=== PATIENT | male | born 1985 | race Caucasian/White ===

== ENCOUNTER 2024-06-05 15:37 | Outpatient (AMB) | payer OTHER, SELFPAY ==
--- NOTE | 2024-06-05 15:53 | MHC.PC.OV ---
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 Was at [facility] for two weeks with pyoderma. Found out he had heart issues in the hospital. Glass Sagger Required: No Allergies No Known Allergies [No Known Allergies*] Allergy (Verified 06/05/24 15:59) Tobacco use date assessed: 06/05/24 Dental Screening Dental Screen Date: 06/05/24 Did you have a dental visit in the last 12 months?: No Did you have a dental problem in the last 6 months where you did not have access to dental care?: No Was dental information given to patient?: No (in process of finding dentist) HPI HPI Comments History of Present Illness Details This is a 39-year-old male with a past medical history of SVT, atrial fibrillation with RVR, obesity, anxiety and depression and pyoderma gangrenosum presenting [facility]. Patient brought his patient visit report from a hospitalization this past April at [facility]. He tells me that he was hospitalized for the wound on his right lower extremity, and he says that the infection ?spread to his blood.? The hospital discharge notes were not available to me at this time. The patient says that it was surgically debrided, and at 1 point they were concerned he might require amputation. He is doing much better fortunately. Dr. Trinity Ramesh is the plastic surgeon. He just had an initial visit with [facility]. They increased his dose of prednisone. He is currently on 60 mg daily. He is doing wound care dressings daily. Patient says he had atrial fibrillation with RVR and an acute injury during hospitalization. He is currently on amiodarone 400 mg daily and Entresto 24-26 mg twice daily. His outbound call center representative is Dr. Samuels. He has an appointment on 07/04/2024. Patient also said he had an episode of SVT a couple of years ago. Per patient and ablation is planned once his leg wound resolves. He sees a therapist at the every Sunday for anxiety and depression. He has a psychiatrist. He is on Effexor and lorazepam as needed. ROS: Constitutional: No unexplained weight loss, fever, chills, fatigue or night sweats. Respiratory: No shortness of breath, cough or sputum production. Cardiovascular: No chest pain, chest pressure or chest discomfort. No palpitations or pedal edema. Neurologic: No headache, dizziness, syncope. Skin: See HPI Endocrine: No cold or heat intolerance. No polyuria or polydipsia. Psychiatric: No SI/HI. Physical exam: Constitutional: Alert, in no distress. Neck: Supple, Full range of motion. No lymphadenopathy. No palpable thyroid masses. Respiratory: Clear to auscultation. Cardiovascular: S1 S2 regular. No murmurs. Neurologic: No focal neurological deficits.. Extremities: Warm and well perfused. No cyanosis or edema. 3+ peripheral pulses bilaterally. There is a large, erythematous, shallow ulcer that covers the majority of the right anterior pearson. It appears clean. The surrounding skin is not erythematous. There is no discharge or edema. Psychiatric: Normal mood and affect [facility] Medical History (Updated 06/06/24 @ 10:37 by ASHLI Cid) REAGAN (acute kidney injury) Atrial fibrillation with RVR Obesity (BMI 30.0-34.9) Anxiety and depression Pyoderma gangrenosum SVT (supraventricular tachycardia) Social History Housing: House Patient Tobacco Use Status: Never used Tobacco e-Cigarette/Vaping Use: Never Used Second Hand Smoke Exposure: No service: No Current occupational status: employed and unemployed Cognitive needs: No Hearing needs: No Vision needs: No Questionnaire PHQ-9 Over the last 2 weeks, how often have you been bothered by any of the following problems? 1. Little interest or pleasure in doing things: nearly every day 2. Feeling down, depressed, or hopeless: nearly every day 3. Trouble falling or staying asleep, or sleeping too much: nearly every day 4. Feeling tired or having little energy: nearly every day 5. Poor appetite or overeating: nearly every day 6. Feeling bad about yourself - or that you are a failure or have let yourself or your family down: nearly every day 7. Trouble concentrating on things, such as reading the newspaper or watching television: nearly every day 8. Moving or speaking so slowly that other people could have noticed. Or the opposite - being so fidgety or restless that you have been moving around a lot more than usual: nearly every day 9. Thoughts that you would be better off or of hurting yourself in some way: several days Total score: 25 Depression Screening Interpretation: Positive Depression Screening Done: Yes 53342 - PHQ-9 Billing: Yes Source: Developed by Drs. Kelvin Huggins, Marah Barakat, Servando Ryan and colleagues, with an educational chun from [employer]. Thrive Questionnaire Date Thrive assessed: 06/05/24 I am a: Patient What is your living situation today?: I do not have a steady places to live I am temporarily staying with others Within the past 12 months, did the food you bought not last and you didn't have the money to get more?: Sometimes True Within the past 12 months, did you worry whether your food would run out before you got money to buy more?: Sometimes True Do you have trouble paying for medicines?: No Do you have trouble getting transportation to medical appointments?: Yes Do you have trouble paying your heating and electricity bill?: No Do you have trouble taking care of your child, family member or friend?: No Do you have trouble with day-to-day activities such as bathing, preparing meals, shopping, managing finances, etc.?: No Are you currently unemployed and looking for a job?: Yes Are you interested in more education?: Yes Please select the resources that you would like help with: Housing/Fpc, Transportation, Daily support, Job search/training and Education Currently or been in a relationship where the following occur: No concerns reported THRIVE Score: 4 AUDIT C Alcohol Use Questionnaire (AUDIT-C) 1. How often do you have a drink containing alcohol?: Never 3. How often do you have six or more drinks on one occasion?: Never Total Score: 0 SHAYY-7 AMB Questionnaire SHAYY-7 Date SHAYY - 7 assessed: 06/05/24 Feeling nervous, anxious, or on edge: 3 = Nearly every day Not being able to stop or control worryin = Nearly every day Worrying too much about different things: 3 = Nearly every day Trouble relaxin = Nearly every day Being so restless that it is hard to sit still: 3 = Nearly every day Becoming easily annoyed or irritable: 3 = Nearly every day Feeling afraid as if something awful might happen: 3 = Nearly every day Total SHAYY-7 score (0-4 normal; 5-9 mild; 10-14 moderate; 15-21 severe): 21 Source: Developed by Drs. Kelvin Huggins, Marah Barakat, Servando Ryan and colleagues, with an educational chun from [employer]. SHAYY-7 Assessment Billing SHAYY-7 Assessment Tool: SHAYY-7 Assessment 60126 Physical exam (Primary Care) Vital Signs: Last Vital Signs Temp 98.7 F 06/05/24 16:00 Pulse 93 06/05/24 16:00 Resp 16 06/05/24 16:00 BP 134/62 06/05/24 16:00 Pulse Ox 98 06/05/24 16:00 Oxygen Delivery Method Room Air 06/05/24 16:00 BMI result Body Mass Index 30.9 Tobacco/Smoking Status: Tobacco use Status Tobacco use date assessed 06/05/24 06/05/24 15:57 Patient Tobacco Use Status Never used Tobacco 06/05/24 15:57 e-Cigarette/Vaping Use Never Used 06/05/24 15:57 PHQ-9: PHQ-9 Score PHQ-9: Total score 25 06/05/24 16:22 Depression Screening Interpretation: Positive Thrive Assessment: Date of Thrive Assessment Date Thrive assessed 06/05/24 06/05/24 16:22 Currently or been in a relationship where the following occur: No concerns reported Assessment and Plan Assessment & Plan (1) Pyoderma gangrenosum: Code(s): L88 - Pyoderma gangrenosum (2) Atrial fibrillation with RVR: Code(s): I48.91 - Unspecified atrial fibrillation (3) SVT (supraventricular tachycardia): Code(s): I47.10 - Supraventricular tachycardia, unspecified (4) Anxiety and depression: Code(s): F41.9 - Anxiety disorder, unspecified; F32.A - Depression, unspecified Plan This is a 39-year-old male who was recently hospitalized for pyoderma gangrenosum, AFib with AVR in REAGAN. Visit is a little bit difficult today without a hospital discharge summary or records. Requested from [facility]. He is following with Plastic surgery and [facility]. Continue treatment plan per specialist at this time. Check labs. Continue psychiatric care with [facility] therapist and psychiatrist. He has an upcoming appointment with [facility]. He is going to run out of his medications prior to this. Refills sent for Entresto and amiodarone. Warning signs warranting return to emergency department reviewed with the patient. Follow up in 2 months. Orders: Orders TSH reflex Free T4 06/05/24 I47.10 - Supraventricular tachycardia, unspecified Comprehensive Met. Panel 06/05/24 I47.10 - Supraventricular tachycardia, unspecified Complete Blood Count Auto Diff 06/05/24 I47.10 - Supraventricular tachycardia, unspecified Medications: New sacubitril-valsartan 24-26 mg (Entresto) 1 tab PO BID 60 tabs 1RF amiodarone 400 mg PO DAILY 30 tabs 1RF Coding Level of Care Code New Pt Level 4 (20507) Complex EM visit Add On G2211 Diagnoses Pyoderma gangrenosum L88 Atrial fibrillation with RVR I48.91 SVT (supraventricular tachycardia) I47.10 Anxiety and depression F41.9; F32.A Additional Codes SHAYY-7 Assessment Billing - SHAYY-7 Assessment Tool: SHAYY-7 Assessment [id number] ([id number])
[2024-06-05 16:00] VITALS: BP 134/62; PULSE 93; RESP 16; TEMP 37.1; O2SAT 98; BMI 30.9
== END 2024-06-05 16:37 | disposition home or self-care (01) ==
PROVIDERS: PCP Physician Assistant Medical; Visit Provider Physician Assistant Medical
DX: L88 Pyoderma gangrenosum (principal); I48.91 Unspecified atrial fibrillation; I47.10 Supraventricular tachycardia, unspecified; F41.9 Anxiety disorder, unspecified; F32.A Depression, unspecified

== ENCOUNTER → 2024-06-05 15:37 | Outpatient (BNVA) | payer OTHER, SELFPAY | PROVIDERS: Visit Provider Physician Assistant Medical | DX: L88 Pyoderma gangrenosum (principal); I48.91 Unspecified atrial fibrillation; I47.10 Supraventricular tachycardia, unspecified; F41.9 Anxiety disorder, unspecified; F32.A Depression, unspecified | CPT/HCPCS: 96127; 99202 ==

== ENCOUNTER 2024-07-14 14:52 | Outpatient (AMB) | payer OTHER, SELFPAY ==
--- NOTE | 2024-07-14 15:14 | A.OFFPC_ITS ---
Vital Signs 07/14/24 15:19 Height 6 ft 0.05 in Weight 236 lb 2 oz BMI 32.0 BP 124/84 Blood Pressure Location Rt brachial Position Sitting Pulse 92 Pulse Source Pulse Oximeter Pulse Oximetry (%) 99 Oxygen Delivery Method Room Air Intake Visit Reasons: follow up Intake Note: Follow up Allergies No Known Allergies [No Known Allergies*] Allergy (Verified 07/14/24 15:15) Tobacco use date assessed: 06/05/24 Dental Screening Dental Screen Date: 06/05/24 HPI HPI Comments History of Present Illness Details This is a 39-year-old male with a past medical history of SVT, atrial fibrillation with RVR, obesity, anxiety and depression and pyoderma gangrenosum presenting for follow up. Pyoderma gangrenosum-patient was hospitalized in April at [facility] for infected wound and sepsis. It was surgically debrided. He saw Dr. Trinity Ramesh for Plastic surgery. He is followed by [facility]. Prednisone was discontinued a month ago. He is still keeping his wound clean and changing the dressing daily. It is doing much better. During hospitalization he had atrial fibrillation with RVR. He sees Dr. Samuels Amiodarone and Entresto were discontinued about 3-4 weeks ago. He has an ablation scheduled for atrial fibrillation this Sunday. Denies chest pain, shortness of breath and palpitations. He continues to see his therapist every Sunday for anxiety and depression. He has a psychiatrist. He is on Effexor and hydroxyzine. He does not feel like hydroxyzine is helping with his symptoms. He endorses history of PTSD. He has a lot of psychosocial stressors. He lives with his girlfriend of 9 years. She has 3 children, and the 14-year-old and 8-year-old are very challenging. Patie nt also he has his own biological children. He is currently not working due to his medical issues. They have financial stressors. His girlfriend also has psychiatric problems. Patient says he feels overwhelmed and trapped. He does a lot for the family, and he does not feel like people are grateful for it. He knows it will get better. Patient says that his girlfriend will be okay if he does end up leaving the relationship. He has made sure that she can be independent. Patient says he will not leave until he gets an inheritance from his grandfather who is 100 years old. He would not be able to without this financial assistance. Patient also says a lot of his belongings are down in [place] where they used to live, and he does not want to leave the relationship until he is able to get these things. Patient also mentions that he has had 6 concussions. The last concussion was 12 years ago. He intermittently gets vertigo when he moves his head back. This has been going on for years. His memory is a concern. He forgets conversations with his girlfriend frequently. The patient says he gets headaches all the time between and behind his eyes that are associated with nausea, vomiting and light sensitivity. Smoking marijuana helps. He is requesting referral to Neurology and imaging. No syncope or seizures. ROS: Constitutional: No unexplained weight loss, fever, chills, fatigue or night sweats. Respiratory: No shortness of breath, cough or sputum production. Cardiovascular: No chest pain, chest pressure or chest discomfort. No palpitations or pedal edema. Neurologic: No headache, dizziness, syncope. Skin: See HPI Endocrine: No cold or heat intolerance. No polyuria or polydipsia. Psychiatric: No SI/HI. Physical exam: Constitutional: Alert, in no distress. Neck: Supple, Full range of motion. No lymphadenopathy. No palpable thyroid masses. Respiratory: Clear to auscultation. Cardiovascular: S1 S2 regular. No murmurs. Neurologic: No focal neurological deficits.. Extremities: Warm and well perfused. No cyanosis or edema. 3+ peripheral pulses bilaterally. There has been significant healing of the large right lower extremity ulcer on the anterior pearson. Nearly the entire ulcer is closed now aside from a few 1 cm hemorrhagic areas. Psychiatric: Normal mood and affect [facility] Medical History (Updated 07/14/24 @ 16:33 by ASHLI Cid) PTSD (post-traumatic stress disorder) Daily headache H/O multiple concussions REAGAN (acute kidney injury) Atrial fibrillation with RVR Obesity (BMI 30.0-34.9) Anxiety and depression Pyoderma gangrenosum SVT (supraventricular tachycardia) Social History Housing: House Patient Tobacco Use Status: Never used Tobacco e-Cigarette/Vaping Use: Never Used Second Hand Smoke Exposure: No service: No Current occupational status: employed and unemployed Cognitive needs: No Hearing needs: No Vision needs: No Questionnaire PHQ-9 Over the last 2 weeks, how often have you been bothered by any of the following problems? 1. Little interest or pleasure in doing things: nearly every day 2. Feeling down, depressed, or hopeless: nearly every day 3. Trouble falling or staying asleep, or sleeping too much: nearly every day 4. Feeling tired or having little energy: more than half the days 5. Poor appetite or overeating: more than half the days 6. Feeling bad about yourself - or that you are a failure or have let yourself or your family down: more than half the days 7. Trouble concentrating on things, such as reading the newspaper or watching television: more than half the days 8. Moving or speaking so slowly that other people could have noticed. Or the opposite - being so fidgety or restless that you have been moving around a lot more than usual: more than half the days 9. Thoughts that you would be better off or of hurting yourself in some way: several days Total score: 20 Source: Developed by Drs. Kelvin Huggins, Marah Barakat, Servando Ryan and colleagues, with an educational chun from [employer]. Thrive Questionnaire Date Thrive assessed: 07/11/24 I am a: Patient What is your living situation today?: I choose not to answer this question Within the past 12 months, did the food you bought not last and you didn't have the money to get more?: Sometimes True Within the past 12 months, did you worry whether your food would run out before you got money to buy more?: Sometimes True Do you have trouble paying for medicines?: No Do you have trouble getting transportation to medical appointments?: Yes Do you have trouble paying your heating and electricity bill?: No Do you have trouble taking care of your child, family member or friend?: No Do you have trouble with day-to-day activities such as bathing, preparing meals, shopping, managing finances, etc.?: Yes Are you currently unemployed and looking for a job?: Yes Are you interested in more education?: No Please select the resources that you would like help with: None Currently or been in a relationship where the following occur: No concerns reported THRIVE Score: 3 AUDIT C Alcohol Use Questionnaire (AUDIT-C) 1. How often do you have a drink containing alcohol?: Never Total Score: 0 SHAYY-7 AMB Questionnaire SHAYY-7 Date SHAYY - 7 assessed: 06/05/24 Feeling nervous, anxious, or on edge: 3 = Nearly every day Not being able to stop or control worryin = Nearly every day Worrying too much about different things: 3 = Nearly every day Trouble relaxin = Nearly every day Being so restless that it is hard to sit still: 3 = Nearly every day Becoming easily annoyed or irritable: 3 = Nearly every day Feeling afraid as if something awful might happen: 3 = Nearly every day Total SHAYY-7 score (0-4 normal; 5-9 mild; 10-14 moderate; 15-21 severe): 21 Source: Developed by Drs. Kelvin Huggins, Marah Barakat, Servando Ryan and colleagues, with an educational chun from [employer]. Physical exam (Primary Care) Vital Signs: Last Vital Signs Pulse 92 07/14/24 15:19 BP 124/84 07/14/24 15:19 Pulse Ox 99 07/14/24 15:19 Oxygen Delivery Method Room Air 07/14/24 15:19 BMI result Body Mass Index 32.0 Tobacco/Smoking Status: Tobacco use Status Tobacco use date assessed 06/05/24 07/14/24 15:17 Patient Tobacco Use Status Never used Tobacco 07/14/24 15:17 e-Cigarette/Vaping Use Never Used 07/14/24 15:17 PHQ-9: PHQ-9 Score PHQ-9: Total score 20 07/14/24 15:21 Thrive Assessment: Date of Thrive Assessment Date Thrive assessed 07/11/24 07/14/24 15:17 Currently or been in a relationship where the following occur: No concerns reported Coding Level of Care Code Est Pt Level 4 (25797) Complex EM visit Add On G2211 Diagnoses Pyoderma gangrenosum L88 Atrial fibrillation with RVR I48.91 Anxiety and depression F41.9; F32.A Daily headache R51.9 Assessment & Plan Assessment & Plan (1) Pyoderma gangrenosum: Code(s): L88 - Pyoderma gangrenosum Category: Medical (2) Atrial fibrillation with RVR: Code(s): I48.91 - Unspecified atrial fibrillation Category: Medical (3) Anxiety and depression: Code(s): F41.9 - Anxiety disorder, unspecified; F32.A - Depression, unspecified Category: Medical (4) Daily headache: Code(s): R51.9 - Headache, unspecified Category: Medical Plan The patient will have his lab work done this week. Printed orders given to the patient. MRI of the head and brain with and without contrast ordered for evaluation of daily headaches, memory concerns and remote history of multiple concussions. Referred to neurology. Ablation is scheduled this Sunday with Cardiology. Continue management per therapist and psychiatrist. Schedule physical exam in 3 months. Orders: Orders MR head/brain wo/w con Today R51.9 - Headache, unspecified, Z87.820 - Personal history of traumatic brain injury Referrals Neurology Referral R51.9 - Headache, unspecified
[2024-07-14 15:19] VITALS: BP 124/84; PULSE 92; O2SAT 99; BMI 32.0
== END 2024-07-14 15:52 | disposition home or self-care (01) ==
LOC: HO.HMCFM 14:53
PROVIDERS: PCP Physician Assistant Medical; Visit Provider Physician Assistant Medical
DX: L88 Pyoderma gangrenosum (principal); I48.91 Unspecified atrial fibrillation; F41.9 Anxiety disorder, unspecified; F32.A Depression, unspecified; R51.9 Headache, unspecified

== ENCOUNTER → 2024-07-14 14:52 | Outpatient (BNVA) | payer OTHER, SELFPAY | PROVIDERS: PCP Physician Assistant Medical; Visit Provider Physician Assistant Medical | DX: L88 Pyoderma gangrenosum (principal); I48.91 Unspecified atrial fibrillation; F41.9 Anxiety disorder, unspecified; F32.A Depression, unspecified; R51.9 Headache, unspecified; Z87.820 Personal history of traumatic brain injury | CPT/HCPCS: 96127; 99212 ==

== ENCOUNTER 2024-08-17 13:21 | Outpatient (REF) | payer OTHER, SELFPAY ==
--- NOTE | ~2024-08-17 | MR_ITS ---
EXAMINATION: MR BRAIN WITHOUT AND WITH CONTRAST CLINICAL INFORMATION: Traumatic brain injury. Persistent headache. Vertigo. Blurred vision. COMPARISON: None available. TECHNIQUE: MRI of the brain was obtained using routine sequences without and following the administration of 10 mL of Gadavist intravenous contrast. FINDINGS: No focal restricted diffusion is demonstrated to suggest acute or subacute cerebral ischemia. No evidence of acute or chronic hemorrhagic products on heme-sensitive imaging. Few nonspecific scattered foci of T2 FLAIR hyperintensity within the coronary radiata white matter. No additional parenchymal signal abnormalities. The ventricles are normal in morphology and size. No abnormal mass effect. No midline shift. Normal appearance of the pituitary gland. The suprasellar cistern remains widely patent. Normal positioning of the cerebellar tonsils. Normal arterial and venous vascular flow voids are present. Small developmental venous anomaly in the right parietal lobe. No abnormal contrast enhancement. Normal, homogeneous marrow signal. Mild mucosal thickening of the paranasal sinuses. No signal abnormalities within the mastoids. Maintained normal T2 signal within the labyrinthine structures. MR/MR head/brain wo/w con IMPRESSION: 1. No acute intracranial abnormalities. No abnormal intracranial enhancement. 2. Mild nonspecific white matter changes. 3. No additional MRI abnormalities to explain the patient's symptoms. Electronically signed by: Michael España DO 08/27/2024 09:51 AM GINA SOFIA
[2024-08-17] MEDS: gadobutroL 10 ML VIAL IVPUSH (14:17)
== END 2024-08-17 13:22 | disposition home or self-care (01) ==
LOC: HO.MRI 13:21
PROVIDERS: PCP Physician Assistant Medical; Visit Provider Physician Assistant Medical
DX: R51.9 Headache, unspecified (principal); Z87.820 Personal history of traumatic brain injury
CPT/HCPCS: 70553; A9585

== ENCOUNTER 2025-08-10 15:58 | Outpatient (AMB) | payer OTHER, SELFPAY ==
--- OUTSIDE RECORDS SUMMARY | 2025-08-04 09:38 | XMS_ITS | Encounter Summary ---
Author Organization [facility] Address [address] [place] [address] Care Team Providers Care Community Artist Name Role Phone Hyacinth Thompson Primary Care Provider Unavailabl e Encounter Details Date Type Department Care Team (Latest Contact Info) Description 08/04/2025 9:38 AM EST - 08/04/2025 11:59 PM [facility] Hospital Encounter [facility] Xray [address] [place] [address] Polyarthralgia Discharge Disposition: Home or Self Care () Social History Tobacco Use Types Packs/Day Years Used Date Smoking Tobacco: Never Passive Smoke Exposure: Past Smokeless Tobacco: Never Alcohol Use Standard Drinks/Week Comments Never 0 (1 standard drink = 0.6 oz pur e alcohol) Sex and Gender Information Value Date Recorded Sex Assigned at Male 05/12/2024 4:26 PM EDT Legal Sex Male 10:17 AM EDT Gender Identity Male 05/12/2024 4:26 PM EDT Sexual Orientation Straight 05/12/2024 4: 26 PM EDT documented as of this encounter Medications at Time of Discharge betamethasone dipropionate 0.05 % ointmentIndicatio ns:Pyoderma gangrenosum Mix with mupirocin ointment and apply onto the wound daily. 45 g 2 07/06/2025 mupirocin (BACTROBAN) 2% ointmentIndicatio ns:Pyoderma gangrenosum Mix with betamethasone ointment and apply a thin layer onto your wound daily. 22 g 3 07/06/2025 documented as of this encounter Plan of Treatment Upcoming Encounters Date Type Department Care Team (Late st Contact Info) Description 11/30/2025 8:00 AM EDT Follow-Up [facility] [address] [place] [address] Cloth Winder: Aniyah Hopkins, Tod Heart MD [address] [place] [address] documented as of this encounter Procedures * Due to [facility] law, this organization might not be sharing negative HIV tests. Procedure Name Priority Date/Time Associated Diagnosis Comments XR CERVICAL SPINE 4 OR 5 VIEWS INCLUDING FLEXION/EXTENSION Routine 08/04/2025 10:40 AM EST Polyarthralgia XR HIP BILATERAL 2 VW W PELVIS Routine 08/04/2025 10:40 AM EST Polyarthralgia XR FOOT 3+ VW RIGHT Routine 08/04/2025 1 0:40 AM EST Polyarthralgia XR FOOT 3+ VW LEFT Routine 08/04/2025 10 :40 AM EST Polyarthralgia XR HAND 3+ VW RIGHT Routine 08/04/2025 1 0:40 AM EST Polyarthralgia XR HAND 3+ VW LEFT Routine 08/04/2025 10 :40 AM EST Polyarthralgia XR SACROILIAC JOINTS 3+ VW Routine 08/04/2025 10:40 AM EST Polyarthralgia XR LUMBAR SPINE 2 OR 3 VIEWS Routine 08/04/2025 10:40 AM EST Polyarthralgia XR THORACIC SPINE 2 VIEWS Routine 08/04/2025 10:40 AM EST Polyarthralgia documented in this encounter Results * Due to [facility] law, this organization might not be sharing negative HIV tests. * XR Hip Bilateral 2 vw W Pelvis (08/04/2025 10:40 AM EST) Anatomical Region Laterality Modality Body, Pelvis, Hip Bilateral Computed Radio graphy 08/04/2025 11:3 1 AM EST Impressions 08/04/2025 11:42 AM EST If this radiology report contains a blank impression section, it is an incomplete radiology report. Please contact the interpreting radiologist or applicable radiology division as soon as possible to obtain the completed interpretation. Workstation ID: [id number] Narrative 08/04/2025 11:42 AM EST COMPARISON: There are no prior studies available for comparison at this time. FINDINGS Bilateral hands AP lateral and oblique views. Bilaterally no old or recent fractures dislocations are identified. No evidence of degenerative or inflammatory arthropathy or inflammatory osteoarthritis. Bilateral feet AP lateral and oblique views. No old or recent fractures dislocations or stress-related changes. Mild degenerative changes of the first MTP and minimally at some of the IP joints. No erosions suggestive of inflammatory arthropathy. No acute changes. Pelvis AP view bilateral hips AP and lateral views. Bilaterally the hip joints SI joints and pubic symphysis are normal. No arthropathy. No old or recent fractures dislocations no calcific tendinosis. SI joints AP and bilateral oblique views. Bilaterally the SI joint spaces are within normal limits. No erosions suggestive of sacroiliitis or any other arthritides. Lumbar spine AP and lateral upright. Mild osteopenia paraspinal soft tissues are within normal limits. Status post L5 laminectomy with internally fixated posterior spinal fusion at L5 and S1. At the same level interbody fusion with interbody graft and anterior listhesis. Degenerative changes of the lower facets. No acute fractures dislocations. Mild retrolisthesis with no arthritic changes at L3-4 and L4 and 5. Thoracic spine AP and lateral views. Paraspinal soft tissues normal. Midthoracic focal dextroscoliosis. In the lateral view some of the upper and the lower thoracic vertebral bodies not completely included. Mild loss of focal kyphosis. No acute fractures dislocations or other changes are identified. Cervical spine AP lateral and flexion and extension lateral views and open-mouth view. Loss of lordosis related to muscle spasm. No acute fractures dislocations or compression deformities. Intervertebral disc spaces and MONIKA are normal. No instability on flexion and extension lateral views. MONIKA is maintained at each motion. Facet joints are within normal limits. Resulting Agency Comment [id number] Procedure Note Li Cha MD - 08/04/2025 COMPARISON: There are no prior studies available for comparison at thistime. FINDINGS Bilateral hands AP lateral and oblique views. Bilaterally no old or recent fractures dislocations are identified. Noevidence of degenerative or inflammatory arthropathy or inflammatoryosteoarthritis. Bilateral feet AP lateral and oblique views. No old or recent fracturesdislocations or stress-related changes. Mild degenerative changes of the first MTP and minimally at some of the IPjoints. No erosions suggestive of inflammatory arthropathy. No acutechanges. Pelvis AP view bilateral hips AP and lateral views. Bilaterally the hip joints SI joints and pubic symphysis are normal. Noarthropathy. No old or recent fractures dislocations no calcifictendinosis. SI joints AP and bilateral oblique views. Bilaterally the SI joint spaces are within normal limits. No erosionssuggestive of sacroiliitis or any other arthritides. Lumbar spine AP and lateral upright. Mild osteopenia paraspinal soft tissues are within normal limits. Statuspost L5 laminectomy with internally fixated posterior spinal fusion at L5and S1. At the same level interbody fusion with interbody graft and anteriorlisthesis. Degenerative changes of the lower facets. No acute fracturesdislocations. Mild retrolisthesis with no arthritic changes at L3-4 and L4 and 5. Thoracic spine AP and lateral views. Paraspinal soft tissues normal. Midthoracic focal dextroscoliosis. In thelateral view some of the upper and the lower thoracic vertebral bodies notcompletely included. Mild loss of focal kyphosis. No acute fractures dislocations or otherchanges are identified. Cervical spine AP lateral and flexion and extension lateral views andopen-mouth view. Loss of lordosis related to muscle spasm. No acute fractures dislocationsor compression deformities. Intervertebral disc spaces and MONIKA are normal.No instability on flexion and extension lateral views. MONIKA is maintained at each motion. Facet joints are withinnormal limits. IMPRESSION: If this radiology report contains a blank impression section, it is anincomplete radiology report. Please contact the interpreting radiologistor applicable radiology division as soon as possible to obtain thecompleted interpretation. Workstation ID: [id number] us Tod Hopkins MD IMG XR PROCEDURES Final Res ult * XR Spine Cervical 4 or 5 Views Including Flexion/Extension (08/04/2025 10:40 AM EST) Anatomical Region Laterality Modality Spine, C-spine Computed Radiogr aphy 08/04/2025 11:3 1 AM EST Impressions 08/04/2025 11:42 AM EST If this radiology report contains a blank impression section, it is an incomplete radiology report. Please contact the interpreting radiologist or applicable radiology division as soon as possible to obtain the completed interpretation. Workstation ID: [id number] Narrative 08/04/2025 11:42 AM EST COMPARISON: There are no prior studies available for comparison at this time. FINDINGS Bilateral hands AP lateral and oblique views. Bilaterally no old or recent fractures dislocations are identified. No evidence of degenerative or inflammatory arthropathy or inflammatory osteoarthritis. Bilateral feet AP lateral and oblique views. No old or recent fractures dislocations or stress-related changes. Mild degenerative changes of the first MTP and minimally at some of the IP joints. No erosions suggestive of inflammatory arthropathy. No acute changes. Pelvis AP view bilateral hips AP and lateral views. Bilaterally the hip joints SI joints and pubic symphysis are normal. No arthropathy. No old or recent fractures dislocations no calcific tendinosis. SI joints AP and bilateral oblique views. Bilaterally the SI joint spaces are within normal limits. No erosions suggestive of sacroiliitis or any other arthritides. Lumbar spine AP and lateral upright. Mild osteopenia paraspinal soft tissues are within normal limits. Status post L5 laminectomy with internally fixated posterior spinal fusion at L5 and S1. At the same level interbody fusion with interbody graft and anterior listhesis. Degenerative changes of the lower facets. No acute fractures dislocations. Mild retrolisthesis with no arthritic changes at L3-4 and L4 and 5. Thoracic spine AP and lateral views. Paraspinal soft tissues normal. Midthoracic focal dextroscoliosis. In the lateral view some of the upper and the lower thoracic vertebral bodies not completely included. Mild loss of focal kyphosis. No acute fractures dislocations or other changes are identified. Cervical spine AP lateral and flexion and extension lateral views and open-mouth view. Loss of lordosis related to muscle spasm. No acute fractures dislocations or compression deformities. Intervertebral disc spaces and MONIKA are normal. No instability on flexion and extension lateral views. MONIKA is maintained at each motion. Facet joints are within normal limits. Resulting Agency Comment [id number] Procedure Note Li Cha MD - 08/04/2025 COMPARISON: There are no prior studies available for comparison at thistime. FINDINGS Bilateral hands AP lateral and oblique views. Bilaterally no old or recent fractures dislocations are identified. Noevidence of degenerative or inflammatory arthropathy or inflammatoryosteoarthritis. Bilateral feet AP lateral and oblique views. No old or recent fracturesdislocations or stress-related changes. Mild degenerative changes of the first MTP and minimally at some of the IPjoints. No erosions suggestive of inflammatory arthropathy. No acutechanges. Pelvis AP view bilateral hips AP and lateral views. Bilaterally the hip joints SI joints and pubic symphysis are normal. Noarthropathy. No old or recent fractures dislocations no calcifictendinosis. SI joints AP and bilateral oblique views. Bilaterally the SI joint spaces are within normal limits. No erosionssuggestive of sacroiliitis or any other arthritides. Lumbar spine AP and lateral upright. Mild osteopenia paraspinal soft tissues are within normal limits. Statuspost L5 laminectomy with internally fixated posterior spinal fusion at L5and S1. At the same level interbody fusion with interbody graft and anteriorlisthesis. Degenerative changes of the lower facets. No acute fracturesdislocations. Mild retrolisthesis with no arthritic changes at L3-4 and L4 and 5. Thoracic spine AP and lateral views. Paraspinal soft tissues normal. Midthoracic focal dextroscoliosis. In thelateral view some of the upper and the lower thoracic vertebral bodies notcompletely included. Mild loss of focal kyphosis. No acute fractures dislocations or otherchanges are identified. Cervical spine AP lateral and flexion and extension lateral views andopen-mouth view. Loss of lordosis related to muscle spasm. No acute fractures dislocationsor compression deformities. Intervertebral disc spaces and MONIKA are normal.No instability on flexion and extension lateral views. MONIKA is maintained at each motion. Facet joints are withinnormal limits. IMPRESSION: If this radiology report contains a blank impression section, it is anincomplete radiology report. Please contact the interpreting radiologistor applicable radiology division as soon as possible to obtain thecompleted interpretation. Workstation ID: [id number] us Tod Hopkins MD IMG XR PROCEDURES Final Res ult * XR Sacroiliac Joints 3+ vw (08/04/2025 10:40 AM EST) Anatomical Region Laterality Modality Body, Spine, Pelvis Computed Rad iography 08/04/2025 11:3 1 AM EST Impressions 08/04/2025 11:42 AM EST If this radiology report contains a blank impression section, it is an incomplete radiology report. Please contact the interpreting radiologist or applicable radiology division as soon as possible to obtain the completed interpretation. Workstation ID: [id number] Narrative 08/04/2025 11:42 AM EST COMPARISON: There are no prior studies available for comparison at this time. FINDINGS Bilateral hands AP lateral and oblique views. Bilaterally no old or recent fractures dislocations are identified. No evidence of degenerative or inflammatory arthropathy or inflammatory osteoarthritis. Bilateral feet AP lateral and oblique views. No old or recent fractures dislocations or stress-related changes. Mild degenerative changes of the first MTP and minimally at some of the IP joints. No erosions suggestive of inflammatory arthropathy. No acute changes. Pelvis AP view bilateral hips AP and lateral views. Bilaterally the hip joints SI joints and pubic symphysis are normal. No arthropathy. No old or recent fractures dislocations no calcific tendinosis. SI joints AP and bilateral oblique views. Bilaterally the SI joint spaces are within normal limits. No erosions suggestive of sacroiliitis or any other arthritides. Lumbar spine AP and lateral upright. Mild osteopenia paraspinal soft tissues are within normal limits. Status post L5 laminectomy with internally fixated posterior spinal fusion at L5 and S1. At the same level interbody fusion with interbody graft and anterior listhesis. Degenerative changes of the lower facets. No acute fractures dislocations. Mild retrolisthesis with no arthritic changes at L3-4 and L4 and 5. Thoracic spine AP and lateral views. Paraspinal soft tissues normal. Midthoracic focal dextroscoliosis. In the lateral view some of the upper and the lower thoracic vertebral bodies not completely included. Mild loss of focal kyphosis. No acute fractures dislocations or other changes are identified. Cervical spine AP lateral and flexion and extension lateral views and open-mouth view. Loss of lordosis related to muscle spasm. No acute fractures dislocations or compression deformities. Intervertebral disc spaces and MONIKA are normal. No instability on flexion and extension lateral views. MONIKA is maintained at each motion. Facet joints are within normal limits. Resulting Agency Comment [id number] Procedure Note Li Cha MD - 08/04/2025 COMPARISON: There are no prior studies available for comparison at thistime. FINDINGS Bilateral hands AP lateral and oblique views. Bilaterally no old or recent fractures dislocations are identified. Noevidence of degenerative or inflammatory arthropathy or inflammatoryosteoarthritis. Bilateral feet AP lateral and oblique views. No old or recent fracturesdislocations or stress-related changes. Mild degenerative changes of the first MTP and minimally at some of the IPjoints. No erosions suggestive of inflammatory arthropathy. No acutechanges. Pelvis AP view bilateral hips AP and lateral views. Bilaterally the hip joints SI joints and pubic symphysis are normal. Noarthropathy. No old or recent fractures dislocations no calcifictendinosis. SI joints AP and bilateral oblique views. Bilaterally the SI joint spaces are within normal limits. No erosionssuggestive of sacroiliitis or any other arthritides. Lumbar spine AP and lateral upright. Mild osteopenia paraspinal soft tissues are within normal limits. Statuspost L5 laminectomy with internally fixated posterior spinal fusion at L5and S1. At the same level interbody fusion with interbody graft and anteriorlisthesis. Degenerative changes of the lower facets. No acute fracturesdislocations. Mild retrolisthesis with no arthritic changes at L3-4 and L4 and 5. Thoracic spine AP and lateral views. Paraspinal soft tissues normal. Midthoracic focal dextroscoliosis. In thelateral view some of the upper and the lower thoracic vertebral bodies notcompletely included. Mild loss of focal kyphosis. No acute fractures dislocations or otherchanges are identified. Cervical spine AP lateral and flexion and extension lateral views andopen-mouth view. Loss of lordosis related to muscle spasm. No acute fractures dislocationsor compression deformities. Intervertebral disc spaces and MONIKA are normal.No instability on flexion and extension lateral views. MONIKA is maintained at each motion. Facet joints are withinnormal limits. IMPRESSION: If this radiology report contains a blank impression section, it is anincomplete radiology report. Please contact the interpreting radiologistor applicable radiology division as soon as possible to obtain thecompleted interpretation. Workstation ID: [id number] us Tod Hopkins MD IMG XR PROCEDURES Final Res ult * XR Lumbar Spine 2 or 3 Views (08/04/2025 10:40 AM EST) Anatomical Region Laterality Modality Spine, L-spine Computed Radiogr aphy 08/04/2025 11:3 1 AM EST Impressions 08/04/2025 11:42 AM EST If this radiology report contains a blank impression section, it is an incomplete radiology report. Please contact the interpreting radiologist or applicable radiology division as soon as possible to obtain the completed interpretation. Workstation ID: [id number] Narrative 08/04/2025 11:42 AM EST COMPARISON: There are no prior studies available for comparison at this time. FINDINGS Bilateral hands AP lateral and oblique views. Bilaterally no old or recent fractures dislocations are identified. No evidence of degenerative or inflammatory arthropathy or inflammatory osteoarthritis. Bilateral feet AP lateral and oblique views. No old or recent fractures dislocations or stress-related changes. Mild degenerative changes of the first MTP and minimally at some of the IP joints. No erosions suggestive of inflammatory arthropathy. No acute changes. Pelvis AP view bilateral hips AP and lateral views. Bilaterally the hip joints SI joints and pubic symphysis are normal. No arthropathy. No old or recent fractures dislocations no calcific tendinosis. SI joints AP and bilateral oblique views. Bilaterally the SI joint spaces are within normal limits. No erosions suggestive of sacroiliitis or any other arthritides. Lumbar spine AP and lateral upright. Mild osteopenia paraspinal soft tissues are within normal limits. Status post L5 laminectomy with internally fixated posterior spinal fusion at L5 and S1. At the same level interbody fusion with interbody graft and anterior listhesis. Degenerative changes of the lower facets. No acute fractures dislocations. Mild retrolisthesis with no arthritic changes at L3-4 and L4 and 5. Thoracic spine AP and lateral views. Paraspinal soft tissues normal. Midthoracic focal dextroscoliosis. In the lateral view some of the upper and the lower thoracic vertebral bodies not completely included. Mild loss of focal kyphosis. No acute fractures dislocations or other changes are identified. Cervical spine AP lateral and flexion and extension lateral views and open-mouth view. Loss of lordosis related to muscle spasm. No acute fractures dislocations or compression deformities. Intervertebral disc spaces and MONIKA are normal. No instability on flexion and extension lateral views. MONIKA is maintained at each motion. Facet joints are within normal limits. Resulting Agency Comment [id number] Procedure Note Li Cha MD - 08/04/2025 COMPARISON: There are no prior studies available for comparison at thistime. FINDINGS Bilateral hands AP lateral and oblique views. Bilaterally no old or recent fractures dislocations are identified. Noevidence of degenerative or inflammatory arthropathy or inflammatoryosteoarthritis. Bilateral feet AP lateral and oblique views. No old or recent fracturesdislocations or stress-related changes. Mild degenerative changes of the first MTP and minimally at some of the IPjoints. No erosions suggestive of inflammatory arthropathy. No acutechanges. Pelvis AP view bilateral hips AP and lateral views. Bilaterally the hip joints SI joints and pubic symphysis are normal. Noarthropathy. No old or recent fractures dislocations no calcifictendinosis. SI joints AP and bilateral oblique views. Bilaterally the SI joint spaces are within normal limits. No erosionssuggestive of sacroiliitis or any other arthritides. Lumbar spine AP and lateral upright. Mild osteopenia paraspinal soft tissues are within normal limits. Statuspost L5 laminectomy with internally fixated posterior spinal fusion at L5and S1. At the same level interbody fusion with interbody graft and anteriorlisthesis. Degenerative changes of the lower facets. No acute fracturesdislocations. Mild retrolisthesis with no arthritic changes at L3-4 and L4 and 5. Thoracic spine AP and lateral views. Paraspinal soft tissues normal. Midthoracic focal dextroscoliosis. In thelateral view some of the upper and the lower thoracic vertebral bodies notcompletely included. Mild loss of focal kyphosis. No acute fractures dislocations or otherchanges are identified. Cervical spine AP lateral and flexion and extension lateral views andopen-mouth view. Loss of lordosis related to muscle spasm. No acute fractures dislocationsor compression deformities. Intervertebral disc spaces and MONIKA are normal.No instability on flexion and extension lateral views. MONIKA is maintained at each motion. Facet joints are withinnormal limits. IMPRESSION: If this radiology report contains a blank impression section, it is anincomplete radiology report. Please contact the interpreting radiologistor applicable radiology division as soon as possible to obtain thecompleted interpretation. Workstation ID: [id number] us Tod Hopkins MD IMG XR PROCEDURES Final Res ult * XR Thoracic Spine 2 Views (08/04/2025 10:40 AM EST) Anatomical Region Laterality Modality Spine, T-spine Computed Radiogr aphy 08/04/2025 11:3 1 AM EST Impressions 08/04/2025 11:42 AM EST If this radiology report contains a blank impression section, it is an incomplete radiology report. Please contact the interpreting radiologist or applicable radiology division as soon as possible to obtain the completed interpretation. Workstation ID: [id number] Narrative 08/04/2025 11:42 AM EST COMPARISON: There are no prior studies available for comparison at this time. FINDINGS Bilateral hands AP lateral and oblique views. Bilaterally no old or recent fractures dislocations are identified. No evidence of degenerative or inflammatory arthropathy or inflammatory osteoarthritis. Bilateral feet AP lateral and oblique views. No old or recent fractures dislocations or stress-related changes. Mild degenerative changes of the first MTP and minimally at some of the IP joints. No erosions suggestive of inflammatory arthropathy. No acute changes. Pelvis AP view bilateral hips AP and lateral views. Bilaterally the hip joints SI joints and pubic symphysis are normal. No arthropathy. No old or recent fractures dislocations no calcific tendinosis. SI joints AP and bilateral oblique views. Bilaterally the SI joint spaces are within normal limits. No erosions suggestive of sacroiliitis or any other arthritides. Lumbar spine AP and lateral upright. Mild osteopenia paraspinal soft tissues are within normal limits. Status post L5 laminectomy with internally fixated posterior spinal fusion at L5 and S1. At the same level interbody fusion with interbody graft and anterior listhesis. Degenerative changes of the lower facets. No acute fractures dislocations. Mild retrolisthesis with no arthritic changes at L3-4 and L4 and 5. Thoracic spine AP and lateral views. Paraspinal soft tissues normal. Midthoracic focal dextroscoliosis. In the lateral view some of the upper and the lower thoracic vertebral bodies not completely included. Mild loss of focal kyphosis. No acute fractures dislocations or other changes are identified. Cervical spine AP lateral and flexion and extension lateral views and open-mouth view. Loss of lordosis related to muscle spasm. No acute fractures dislocations or compression deformities. Intervertebral disc spaces and MONIKA are normal. No instability on flexion and extension lateral views. MONIKA is maintained at each motion. Facet joints are within normal limits. Resulting Agency Comment [id number] Procedure Note Li Cha MD - 08/04/2025 COMPARISON: There are no prior studies available for comparison at thistime. FINDINGS Bilateral hands AP lateral and oblique views. Bilaterally no old or recent fractures dislocations are identified. Noevidence of degenerative or inflammatory arthropathy or inflammatoryosteoarthritis. Bilateral feet AP lateral and oblique views. No old or recent fracturesdislocations or stress-related changes. Mild degenerative changes of the first MTP and minimally at some of the IPjoints. No erosions suggestive of inflammatory arthropathy. No acutechanges. Pelvis AP view bilateral hips AP and lateral views. Bilaterally the hip joints SI joints and pubic symphysis are normal. Noarthropathy. No old or recent fractures dislocations no calcifictendinosis. SI joints AP and bilateral oblique views. Bilaterally the SI joint spaces are within normal limits. No erosionssuggestive of sacroiliitis or any other arthritides. Lumbar spine AP and lateral upright. Mild osteopenia paraspinal soft tissues are within normal limits. Statuspost L5 laminectomy with internally fixated posterior spinal fusion at L5and S1. At the same level interbody fusion with interbody graft and anteriorlisthesis. Degenerative changes of the lower facets. No acute fracturesdislocations. Mild retrolisthesis with no arthritic changes at L3-4 and L4 and 5. Thoracic spine AP and lateral views. Paraspinal soft tissues normal. Midthoracic focal dextroscoliosis. In thelateral view some of the upper and the lower thoracic vertebral bodies notcompletely included. Mild loss of focal kyphosis. No acute fractures dislocations or otherchanges are identified. Cervical spine AP lateral and flexion and extension lateral views andopen-mouth view. Loss of lordosis related to muscle spasm. No acute fractures dislocationsor compression deformities. Intervertebral disc spaces and MONIKA are normal.No instability on flexion and extension lateral views. MONIKA is maintained at each motion. Facet joints are withinnormal limits. IMPRESSION: If this radiology report contains a blank impression section, it is anincomplete radiology report. Please contact the interpreting radiologistor applicable radiology division as soon as possible to obtain thecompleted interpretation. Workstation ID: [id number] us Tod Hopkins MD IMG XR PROCEDURES Final Res ult * XR Foot 3+ vw Right (08/04/2025 10:40 AM EST) Anatomical Region Laterality Modality Lower Extremities, Foot Right Computed Radiography 08/04/2025 11:3 1 AM EST Impressions 08/04/2025 11:42 AM EST If this radiology report contains a blank impression section, it is an incomplete radiology report. Please contact the interpreting radiologist or applicable radiology division as soon as possible to obtain the completed interpretation. Workstation ID: [id number] Narrative 08/04/2025 11:42 AM EST COMPARISON: There are no prior studies available for comparison at this time. FINDINGS Bilateral hands AP lateral and oblique views. Bilaterally no old or recent fractures dislocations are identified. No evidence of degenerative or inflammatory arthropathy or inflammatory osteoarthritis. Bilateral feet AP lateral and oblique views. No old or recent fractures dislocations or stress-related changes. Mild degenerative changes of the first MTP and minimally at some of the IP joints. No erosions suggestive of inflammatory arthropathy. No acute changes. Pelvis AP view bilateral hips AP and lateral views. Bilaterally the hip joints SI joints and pubic symphysis are normal. No arthropathy. No old or recent fractures dislocations no calcific tendinosis. SI joints AP and bilateral oblique views. Bilaterally the SI joint spaces are within normal limits. No erosions suggestive of sacroiliitis or any other arthritides. Lumbar spine AP and lateral upright. Mild osteopenia paraspinal soft tissues are within normal limits. Status post L5 laminectomy with internally fixated posterior spinal fusion at L5 and S1. At the same level interbody fusion with interbody graft and anterior listhesis. Degenerative changes of the lower facets. No acute fractures dislocations. Mild retrolisthesis with no arthritic changes at L3-4 and L4 and 5. Thoracic spine AP and lateral views. Paraspinal soft tissues normal. Midthoracic focal dextroscoliosis. In the lateral view some of the upper and the lower thoracic vertebral bodies not completely included. Mild loss of focal kyphosis. No acute fractures dislocations or other changes are identified. Cervical spine AP lateral and flexion and extension lateral views and open-mouth view. Loss of lordosis related to muscle spasm. No acute fractures dislocations or compression deformities. Intervertebral disc spaces and MONIKA are normal. No instability on flexion and extension lateral views. MONIKA is maintained at each motion. Facet joints are within normal limits. Resulting Agency Comment [id number] Procedure Note Li Cha MD - 08/04/2025 COMPARISON: There are no prior studies available for comparison at thistime. FINDINGS Bilateral hands AP lateral and oblique views. Bilaterally no old or recent fractures dislocations are identified. Noevidence of degenerative or inflammatory arthropathy or inflammatoryosteoarthritis. Bilateral feet AP lateral and oblique views. No old or recent fracturesdislocations or stress-related changes. Mild degenerative changes of the first MTP and minimally at some of the IPjoints. No erosions suggestive of inflammatory arthropathy. No acutechanges. Pelvis AP view bilateral hips AP and lateral views. Bilaterally the hip joints SI joints and pubic symphysis are normal. Noarthropathy. No old or recent fractures dislocations no calcifictendinosis. SI joints AP and bilateral oblique views. Bilaterally the SI joint spaces are within normal limits. No erosionssuggestive of sacroiliitis or any other arthritides. Lumbar spine AP and lateral upright. Mild osteopenia paraspinal soft tissues are within normal limits. Statuspost L5 laminectomy with internally fixated posterior spinal fusion at L5and S1. At the same level interbody fusion with interbody graft and anteriorlisthesis. Degenerative changes of the lower facets. No acute fracturesdislocations. Mild retrolisthesis with no arthritic changes at L3-4 and L4 and 5. Thoracic spine AP and lateral views. Paraspinal soft tissues normal. Midthoracic focal dextroscoliosis. In thelateral view some of the upper and the lower thoracic vertebral bodies notcompletely included. Mild loss of focal kyphosis. No acute fractures dislocations or otherchanges are identified. Cervical spine AP lateral and flexion and extension lateral views andopen-mouth view. Loss of lordosis related to muscle spasm. No acute fractures dislocationsor compression deformities. Intervertebral disc spaces and MONIKA are normal.No instability on flexion and extension lateral views. MONIKA is maintained at each motion. Facet joints are withinnormal limits. IMPRESSION: If this radiology report contains a blank impression section, it is anincomplete radiology report. Please contact the interpreting radiologistor applicable radiology division as soon as possible to obtain thecompleted interpretation. Workstation ID: [id number] us Tod Hopkins MD IMG XR PROCEDURES Final Res ult * XR Foot 3+ vw Left (08/04/2025 10:40 AM EST) Anatomical Region Laterality Modality Lower Extremities, Foot Left Computed Radiography 08/04/2025 11:3 1 AM EST Impressions 08/04/2025 11:42 AM EST If this radiology report contains a blank impression section, it is an incomplete radiology report. Please contact the interpreting radiologist or applicable radiology division as soon as possible to obtain the completed interpretation. Workstation ID: [id number] Narrative 08/04/2025 11:42 AM EST COMPARISON: There are no prior studies available for comparison at this time. FINDINGS Bilateral hands AP lateral and oblique views. Bilaterally no old or recent fractures dislocations are identified. No evidence of degenerative or inflammatory arthropathy or inflammatory osteoarthritis. Bilateral feet AP lateral and oblique views. No old or recent fractures dislocations or stress-related changes. Mild degenerative changes of the first MTP and minimally at some of the IP joints. No erosions suggestive of inflammatory arthropathy. No acute changes. Pelvis AP view bilateral hips AP and lateral views. Bilaterally the hip joints SI joints and pubic symphysis are normal. No arthropathy. No old or recent fractures dislocations no calcific tendinosis. SI joints AP and bilateral oblique views. Bilaterally the SI joint spaces are within normal limits. No erosions suggestive of sacroiliitis or any other arthritides. Lumbar spine AP and lateral upright. Mild osteopenia paraspinal soft tissues are within normal limits. Status post L5 laminectomy with internally fixated posterior spinal fusion at L5 and S1. At the same level interbody fusion with interbody graft and anterior listhesis. Degenerative changes of the lower facets. No acute fractures dislocations. Mild retrolisthesis with no arthritic changes at L3-4 and L4 and 5. Thoracic spine AP and lateral views. Paraspinal soft tissues normal. Midthoracic focal dextroscoliosis. In the lateral view some of the upper and the lower thoracic vertebral bodies not completely included. Mild loss of focal kyphosis. No acute fractures dislocations or other changes are identified. Cervical spine AP lateral and flexion and extension lateral views and open-mouth view. Loss of lordosis related to muscle spasm. No acute fractures dislocations or compression deformities. Intervertebral disc spaces and MONIKA are normal. No instability on flexion and extension lateral views. MONIKA is maintained at each motion. Facet joints are within normal limits. Resulting Agency Comment [id number] Procedure Note Li Cha MD - 08/04/2025 COMPARISON: There are no prior studies available for comparison at thistime. FINDINGS Bilateral hands AP lateral and oblique views. Bilaterally no old or recent fractures dislocations are identified. Noevidence of degenerative or inflammatory arthropathy or inflammatoryosteoarthritis. Bilateral feet AP lateral and oblique views. No old or recent fracturesdislocations or stress-related changes. Mild degenerative changes of the first MTP and minimally at some of the IPjoints. No erosions suggestive of inflammatory arthropathy. No acutechanges. Pelvis AP view bilateral hips AP and lateral views. Bilaterally the hip joints SI joints and pubic symphysis are normal. Noarthropathy. No old or recent fractures dislocations no calcifictendinosis. SI joints AP and bilateral oblique views. Bilaterally the SI joint spaces are within normal limits. No erosionssuggestive of sacroiliitis or any other arthritides. Lumbar spine AP and lateral upright. Mild osteopenia paraspinal soft tissues are within normal limits. Statuspost L5 laminectomy with internally fixated posterior spinal fusion at L5and S1. At the same level interbody fusion with interbody graft and anteriorlisthesis. Degenerative changes of the lower facets. No acute fracturesdislocations. Mild retrolisthesis with no arthritic changes at L3-4 and L4 and 5. Thoracic spine AP and lateral views. Paraspinal soft tissues normal. Midthoracic focal dextroscoliosis. In thelateral view some of the upper and the lower thoracic vertebral bodies notcompletely included. Mild loss of focal kyphosis. No acute fractures dislocations or otherchanges are identified. Cervical spine AP lateral and flexion and extension lateral views andopen-mouth view. Loss of lordosis related to muscle spasm. No acute fractures dislocationsor compression deformities. Intervertebral disc spaces and MONIKA are normal.No instability on flexion and extension lateral views. MONIKA is maintained at each motion. Facet joints are withinnormal limits. IMPRESSION: If this radiology report contains a blank impression section, it is anincomplete radiology report. Please contact the interpreting radiologistor applicable radiology division as soon as possible to obtain thecompleted interpretation. Workstation ID: [id number] us Tod Hopkins MD IMG XR PROCEDURES Final Res ult * XR Hand 3+ vw Right (08/04/2025 10:40 AM EST) Anatomical Region Laterality Modality Upper Extremities, Hand Right Computed Radiography 08/04/2025 11:3 1 AM EST Impressions 08/04/2025 11:42 AM EST If this radiology report contains a blank impression section, it is an incomplete radiology report. Please contact the interpreting radiologist or applicable radiology division as soon as possible to obtain the completed interpretation. Workstation ID: [id number] Narrative 08/04/2025 11:42 AM EST COMPARISON: There are no prior studies available for comparison at this time. FINDINGS Bilateral hands AP lateral and oblique views. Bilaterally no old or recent fractures dislocations are identified. No evidence of degenerative or inflammatory arthropathy or inflammatory osteoarthritis. Bilateral feet AP lateral and oblique views. No old or recent fractures dislocations or stress-related changes. Mild degenerative changes of the first MTP and minimally at some of the IP joints. No erosions suggestive of inflammatory arthropathy. No acute changes. Pelvis AP view bilateral hips AP and lateral views. Bilaterally the hip joints SI joints and pubic symphysis are normal. No arthropathy. No old or recent fractures dislocations no calcific tendinosis. SI joints AP and bilateral oblique views. Bilaterally the SI joint spaces are within normal limits. No erosions suggestive of sacroiliitis or any other arthritides. Lumbar spine AP and lateral upright. Mild osteopenia paraspinal soft tissues are within normal limits. Status post L5 laminectomy with internally fixated posterior spinal fusion at L5 and S1. At the same level interbody fusion with interbody graft and anterior listhesis. Degenerative changes of the lower facets. No acute fractures dislocations. Mild retrolisthesis with no arthritic changes at L3-4 and L4 and 5. Thoracic spine AP and lateral views. Paraspinal soft tissues normal. Midthoracic focal dextroscoliosis. In the lateral view some of the upper and the lower thoracic vertebral bodies not completely included. Mild loss of focal kyphosis. No acute fractures dislocations or other changes are identified. Cervical spine AP lateral and flexion and extension lateral views and open-mouth view. Loss of lordosis related to muscle spasm. No acute fractures dislocations or compression deformities. Intervertebral disc spaces and MONIKA are normal. No instability on flexion and extension lateral views. MONIKA is maintained at each motion. Facet joints are within normal limits. Resulting Agency Comment [id number] Procedure Note Li Cha MD - 08/04/2025 COMPARISON: There are no prior studies available for comparison at thistime. FINDINGS Bilateral hands AP lateral and oblique views. Bilaterally no old or recent fractures dislocations are identified. Noevidence of degenerative or inflammatory arthropathy or inflammatoryosteoarthritis. Bilateral feet AP lateral and oblique views. No old or recent fracturesdislocations or stress-related changes. Mild degenerative changes of the first MTP and minimally at some of the IPjoints. No erosions suggestive of inflammatory arthropathy. No acutechanges. Pelvis AP view bilateral hips AP and lateral views. Bilaterally the hip joints SI joints and pubic symphysis are normal. Noarthropathy. No old or recent fractures dislocations no calcifictendinosis. SI joints AP and bilateral oblique views. Bilaterally the SI joint spaces are within normal limits. No erosionssuggestive of sacroiliitis or any other arthritides. Lumbar spine AP and lateral upright. Mild osteopenia paraspinal soft tissues are within normal limits. Statuspost L5 laminectomy with internally fixated posterior spinal fusion at L5and S1. At the same level interbody fusion with interbody graft and anteriorlisthesis. Degenerative changes of the lower facets. No acute fracturesdislocations. Mild retrolisthesis with no arthritic changes at L3-4 and L4 and 5. Thoracic spine AP and lateral views. Paraspinal soft tissues normal. Midthoracic focal dextroscoliosis. In thelateral view some of the upper and the lower thoracic vertebral bodies notcompletely included. Mild loss of focal kyphosis. No acute fractures dislocations or otherchanges are identified. Cervical spine AP lateral and flexion and extension lateral views andopen-mouth view. Loss of lordosis related to muscle spasm. No acute fractures dislocationsor compression deformities. Intervertebral disc spaces and MONIKA are normal.No instability on flexion and extension lateral views. MONIKA is maintained at each motion. Facet joints are withinnormal limits. IMPRESSION: If this radiology report contains a blank impression section, it is anincomplete radiology report. Please contact the interpreting radiologistor applicable radiology division as soon as possible to obtain thecompleted interpretation. Workstation ID: [id number] us Tod Hopkins MD IMG XR PROCEDURES Final Res ult * XR Hand 3+ vw Left (08/04/2025 10:40 AM EST) Anatomical Region Laterality Modality Upper Extremities, Hand Left Computed Radiography 08/04/2025 11:3 1 AM EST Impressions 08/04/2025 11:42 AM EST If this radiology report contains a blank impression section, it is an incomplete radiology report. Please contact the interpreting radiologist or applicable radiology division as soon as possible to obtain the completed interpretation. Workstation ID: [id number] Narrative 08/04/2025 11:42 AM EST COMPARISON: There are no prior studies available for comparison at this time. FINDINGS Bilateral hands AP lateral and oblique views. Bilaterally no old or recent fractures dislocations are identified. No evidence of degenerative or inflammatory arthropathy or inflammatory osteoarthritis. Bilateral feet AP lateral and oblique views. No old or recent fractures dislocations or stress-related changes. Mild degenerative changes of the first MTP and minimally at some of the IP joints. No erosions suggestive of inflammatory arthropathy. No acute changes. Pelvis AP view bilateral hips AP and lateral views. Bilaterally the hip joints SI joints and pubic symphysis are normal. No arthropathy. No old or recent fractures dislocations no calcific tendinosis. SI joints AP and bilateral oblique views. Bilaterally the SI joint spaces are within normal limits. No erosions suggestive of sacroiliitis or any other arthritides. Lumbar spine AP and lateral upright. Mild osteopenia paraspinal soft tissues are within normal limits. Status post L5 laminectomy with internally fixated posterior spinal fusion at L5 and S1. At the same level interbody fusion with interbody graft and anterior listhesis. Degenerative changes of the lower facets. No acute fractures dislocations. Mild retrolisthesis with no arthritic changes at L3-4 and L4 and 5. Thoracic spine AP and lateral views. Paraspinal soft tissues normal. Midthoracic focal dextroscoliosis. In the lateral view some of the upper and the lower thoracic vertebral bodies not completely included. Mild loss of focal kyphosis. No acute fractures dislocations or other changes are identified. Cervical spine AP lateral and flexion and extension lateral views and open-mouth view. Loss of lordosis related to muscle spasm. No acute fractures dislocations or compression deformities. Intervertebral disc spaces and MONIKA are normal. No instability on flexion and extension lateral views. MONIKA is maintained at each motion. Facet joints are within normal limits. Resulting Agency Comment [id number] Procedure Note Li Cha MD - 08/04/2025 COMPARISON: There are no prior studies available for comparison at thistime. FINDINGS Bilateral hands AP lateral and oblique views. Bilaterally no old or recent fractures dislocations are identified. Noevidence of degenerative or inflammatory arthropathy or inflammatoryosteoarthritis. Bilateral feet AP lateral and oblique views. No old or recent fracturesdislocations or stress-related changes. Mild degenerative changes of the first MTP and minimally at some of the IPjoints. No erosions suggestive of inflammatory arthropathy. No acutechanges. Pelvis AP view bilateral hips AP and lateral views. Bilaterally the hip joints SI joints and pubic symphysis are normal. Noarthropathy. No old or recent fractures dislocations no calcifictendinosis. SI joints AP and bilateral oblique views. Bilaterally the SI joint spaces are within normal limits. No erosionssuggestive of sacroiliitis or any other arthritides. Lumbar spine AP and lateral upright. Mild osteopenia paraspinal soft tissues are within normal limits. Statuspost L5 laminectomy with internally fixated posterior spinal fusion at L5and S1. At the same level interbody fusion with interbody graft and anteriorlisthesis. Degenerative changes of the lower facets. No acute fracturesdislocations. Mild retrolisthesis with no arthritic changes at L3-4 and L4 and 5. Thoracic spine AP and lateral views. Paraspinal soft tissues normal. Midthoracic focal dextroscoliosis. In thelateral view some of the upper and the lower thoracic vertebral bodies notcompletely included. Mild loss of focal kyphosis. No acute fractures dislocations or otherchanges are identified. Cervical spine AP lateral and flexion and extension lateral views andopen-mouth view. Loss of lordosis related to muscle spasm. No acute fractures dislocationsor compression deformities. Intervertebral disc spaces and MONIKA are normal.No instability on flexion and extension lateral views. MONIKA is maintained at each motion. Facet joints are withinnormal limits. IMPRESSION: If this radiology report contains a blank impression section, it is anincomplete radiology report. Please contact the interpreting radiologistor applicable radiology division as soon as possible to obtain thecompleted interpretation. Workstation ID: [id number] us Tod Hopkins MD IMG XR PROCEDURES Final Res ult documented in this encounter Visit Diagnoses Diagnosis Polyarthralgia Pain in joint, multiple sites documented in this encounter Care Teams Community Artist Relationship Specialty Start Date End Date Hyacinth Thompson PCP - General Internal Medicine 08/04/25 documented as of this encounter
--- NOTE | 2025-08-10 16:08 | MHC.PC.OV ---
Vital Signs 08/10/25 16:14 Height 6 ft 2 in Weight 216 lb 3 oz BMI 27.8 BP 118/72 Blood Pressure Location Rt brachial Position Sitting Respiration 15 Pulse 81 Pulse Source Pulse Oximeter Temp 98.2 F Temp Source Temporal Artery Scan Pulse Oximetry (%) 98 Oxygen Delivery Method Room Air Intake Visit Reasons: physical exam Intake Note: Cesar presents in the office today for his annual physical. Director Patient Accounting Required: No Allergies No Known Allergies (No Known Allergies*) Allergy (Verified 08/10/25 16:10) Tobacco use date assessed: 08/10/25 Dental Screening Dental Screen Date: 08/10/25 Did you have a dental visit in the last 12 months?: No Did you have a dental problem in the last 6 months where you did not have access to dental care?: No Was dental information given to patient?: Patient declined HPI HPI Comments History of Present Illness Details This is a 40-year-old male with a past medical history of SVT, atrial fibrillation with RVR, obesity, anxiety and depression and pyoderma gangrenosum presenting for a physical. He was last seen 07/14/2024. Pyoderma gangrenosum-patient was hospitalized in April 2024 at [facility] for infected wound and sepsis. It was surgically debrided. He saw Dr. Trinity Ramesh for Plastic surgery. He is followed by [facility]. He was on prednisone. He is doing great. He still sees [facility]. They did bring up a concern about potential autoimmune disease so he also saw Rheumatology there recently and had x-rays of his spine that he will upload and an extensive amount of lab work. During hospitalization in 2023 he had atrial fibrillation with RVR. He had an ablation with Dr. Beckman. Denies chest pain, shortness of breath and palpitations. The patient has anxiety, depression and PTSD. He is followed by a therapist and psychiatrist. He tried multiple medications including Effexor and hydroxyzine. His psychiatrist asked him to discuss starting a lorazepam as needed with me because the psychiatrist does not prescribe benzodiazepines. He does not have a history of drug abuse. He does use marijuana for anxiety. He actually stopped using it entirely recently. He has a lot of psychosocial stressors. Lives with his girlfriend. She has 3 children, and this can be challenging. Patient also has a zone biological children. They have financial stressors. A year ago at his appointment he brought up concerns about intermittent vertigo, memory concerns and headaches. He reported a history of 6 concussions. The last concussion was now 13 years ago. Headaches were associated with nausea, vomiting and light sensitivity. Smoking marijuana helped. He was referred to Neurology, but an appointment was not scheduled. He had an MRI of the brain which showed only mild, nonspecific white matter changes. He is very concerned about potentially having multiple sclerosis. He says over the past 6 months he has had numbness on the bottom of his right foot that is worse when he is sitting. He also is dropping things with his right hand frequently, and he gets numbness and tingling in the right hand. He has some stiffness in his neck, but the x-ray recently done by Rheumatology did not show any significant changes but there was possible muscle spasm. He denies vision changes. Headaches have been occurring less frequently. He is right-hand dominant. He defers all vaccines. ROS: Constitutional: No unexplained weight loss, fever, chills or night sweats. +fatigue Eyes: No vision changes, blurry vision, double vision, eye pain, eye redness, eye discharge. ENT: No hearing loss, sneezing, congestion, runny nose or sore throat. Respiratory: No shortness of breath, cough or sputum production. Cardiovascular: No chest pain, chest pressure or chest discomfort. No palpitations or pedal edema. Gastrointestinal: No anorexia, nausea, vomiting or diarrhea. No abdominal pain or blood in stool. Genitourinary: No dysuria, hematuria, urinary frequency. Neurologic: No syncope, ataxia, tremors. See HPI Musculoskeletal: No joint swelling. See HPI. Hematologic/Lymphatics: No bleeding or bruising. No painful lymph nodes. Skin: No rash Endocrine: No cold or heat intolerance. No polyuria or polydipsia. Psychiatric: See HPI. No SI/HI. Physical exam: Constitutional: Alert, in no distress. Head: Normocephalic. Eyes: Pupils are equal, round and reactive to light. Extraocular muscles intact. Ear, Nose and Throat: Canals clear. TMs normal. Normal nasal mucosa. No nasal discharge. No oral lesions. Neck: Supple, Full range of motion. No lymphadenopathy. No palpable thyroid masses. Respiratory: Clear to auscultation. Cardiovascular: S1 S2 regular. No murmurs. No carotid bruits. Gastrointestinal: Abdomen soft, non-tender, non-distended. Normal bowel sounds. No palpable masses. Genitourinary: Deferred Neurologic: Moves extremities spontaneously. Probation Manager strength of the right hand is 4/5 compared to 5/5 on the left. Positive right Phalen maneuver. Negative Tinel's test over the wrists bilaterally. Lower extremity strength 5/5 bilaterally. Symmetric patellar reflexes. Gait is normal. Patient endorses decreased sensation with palpation of the plantar surface of the right foot compared to the left. Negative Romberg test. No pronator drift. Skin: Scarring is present on the right anterior pearson. Musculoskeletal: No gross deformities. Normal range of motion. Extremities: Warm and well perfused. No clubbing, cyanosis or edema. Intact peripheral pulses bilaterally. Psychiatric: Cooperative. Maintains good eye contact. Frequently changes subjects and is loquacious. [facility] Medical History (Updated 08/11/25 @ 13:02 by ASHLI Cid) White matter abnormality on MRI of brain Routine physical examination Numbness of right foot Paresthesia of right arm PTSD (post-traumatic stress disorder) Daily headache H/O multiple concussions REAGAN (acute kidney injury) Atrial fibrillation with RVR Obesity (BMI 30.0-34.9) Anxiety and depression Pyoderma gangrenosum SVT (supraventricular tachycardia) Family History (Updated 08/10/25 @ 16:12 by Hattie Figueroa [facility]) Paternal Grandmother Alzheimer dementia Mother Multiple sclerosis Father Substance abuse Alcoholism Social History Housing: House Patient Tobacco Use Status: Never used Tobacco e-Cigarette/Vaping Use: Never Used Second Hand Smoke Exposure: No service: No Current occupational status: employed and unemployed Cognitive needs: No Hearing needs: No Vision needs: No Questionnaire PHQ-9 Over the last 2 weeks, how often have you been bothered by any of the following problems? 1. Little interest or pleasure in doing things: more than half the days 2. Feeling down, depressed, or hopeless: several days 3. Trouble falling or staying asleep, or sleeping too much: nearly every day 4. Feeling tired or having little energy: more than half the days 5. Poor appetite or overeating: more than half the days 6. Feeling bad about yourself - or that you are a failure or have let yourself or your family down: more than half the days 7. Trouble concentrating on things, such as reading the newspaper or watching television: more than half the days 8. Moving or speaking so slowly that other people could have noticed. Or the opposite - being so fidgety or restless that you have been moving around a lot more than usual: more than half the days 9. Thoughts that you would be better off or of hurting yourself in some way: not at all Total score: 16 Depression Screening Interpretation: Positive Depression Screening Follow-up: Existing condition and In treatment Depression Screening Done: Yes 43410 - PHQ-9 Billing: Yes Source: Developed by Drs. Kelvin Huggins, Marah Barakat, Servando Ryan and colleagues, with an educational chun from [employer]. Thrive Questionnaire Date Thrive assessed: 08/10/25 I am a: Patient What is your living situation today?: I choose not to answer this question Within the past 12 months, did the food you bought not last and you didn't have the money to get more?: I choose not to answer this question Within the past 12 months, did you worry whether your food would run out before you got money to buy more?: I choose not to answer this question Do you have trouble paying for medicines?: Yes Do you have trouble getting transportation to medical appointments?: Yes Do you have trouble paying your heating and electricity bill?: I choose not to answer this question Do you have trouble taking care of your child, family member or friend?: I choose not to answer this question Do you have trouble with day-to-day activities such as bathing, preparing meals, shopping, managing finances, etc.?: I choose not to answer this question Are you currently unemployed and looking for a job?: Yes Are you interested in more education?: I choose not to answer this question Please select the resources that you would like help with: None Currently or been in a relationship where the following occur: I choose not to answer THRIVE Score: 1 AUDIT C Alcohol Use Questionnaire (AUDIT-C) 1. How often do you have a drink containing alcohol?: Never 3. How often do you have six or more drinks on one occasion?: Never Total Score: 0 SHAYY-7 AMB Questionnaire SHAYY-7 Date SHAYY - 7 assessed: 08/10/25 Feeling nervous, anxious, or on edge: 3 = Nearly every day Not being able to stop or control worryin = More than half the days Worrying too much about different things: 2 = More than half the days Trouble relaxin = Nearly every day Being so restless that it is hard to sit still: 3 = Nearly every day Becoming easily annoyed or irritable: 3 = Nearly every day Feeling afraid as if something awful might happen: 1 = Several days Total SHAYY-7 score (0-4 normal; 5-9 mild; 10-14 moderate; 15-21 severe): 17 Source: Developed by Drs. Kelvin Huggins, Marah Barakat, Servando Ryan and colleagues, with an educational chun from [employer]. SHAYY-7 Assessment Billing SHAYY-7 Assessment Tool: SHAYY-7 Assessment 65414 Physical exam (Primary Care) Vital Signs: Last Vital Signs Temp 98.2 F 08/10/25 16:14 Pulse 81 08/10/25 16:14 Resp 15 08/10/25 16:14 BP 118/72 08/10/25 16:14 Pulse Ox 98 08/10/25 16:14 Oxygen Delivery Method Room Air 08/10/25 16:14 BMI result Body Mass Index 27.8 Tobacco/Smoking Status: Tobacco use Status Tobacco use date assessed 08/10/25 08/10/25 16:13 Patient Tobacco Use Status Never used Tobacco 08/10/25 16:13 e-Cigarette/Vaping Use Never Used 08/10/25 16:13 PHQ-9: PHQ-9 Score PHQ-9: Total score 16 08/10/25 16:37 Depression Screening Interpretation: Positive Depression Screening Follow-up: Existing condition and In treatment Thrive Assessment: Date of Thrive Assessment Date Thrive assessed 08/10/25 08/10/25 16:13 Currently or been in a relationship where the following occur: I choose not to answer Coding Level of Care Code Est Pt Level 3 (31882) Est Pt Prev Care 40-64y(51184) Diagnoses Routine physical examination Z00.00 Paresthesia of right arm R20.2 Numbness of right foot R20.0 Anxiety and depression F41.9; F32.A PTSD (post-traumatic stress disorder) F43.10 White matter abnormality on MRI of brain R90.82 Additional Codes SHAYY-7 Assessment Billing - SHAYY-7 Assessment Tool: SHAYY-7 Assessment 62161 ([id number]) PHQ-9 - 65259 - PHQ-9 Billing: Yes ([id number]) Assessment & Plan Assessment & Plan (1) Routine physical examination: Code(s): Z00.00 - Encounter for general adult medical examination without abnormal findings Category: Medical (2) Paresthesia of right arm: Code(s): R20.2 - Paresthesia of skin Category: Medical (3) Numbness of right foot: Code(s): R20.0 - Anesthesia of skin Category: Medical (4) Anxiety and depression: Code(s): F41.9 - Anxiety disorder, unspecified; F32.A - Depression, unspecified Category: Medical (5) PTSD (post-traumatic stress disorder): Code(s): F43.10 - Post-traumatic stress disorder, unspecified Category: Medical (6) White matter abnormality on MRI of brain: Code(s): R90.82 - White matter disease, unspecified Category: Medical Plan Patient is seen today for a routine physical. As part of this visit we reviewed the following issues, which are considered and essential part of preventative health in this age group: - Testicular cancer screening, which includes self exam teaching - Screening for colon cancer-denies family history of colon cancer. Screening to begin at age 45 years. - Discussed Prostate cancer screening-PSA ordered - Blood pressure screening - Cholesterol screening - Nutritional and exercise counseling - Counseling of injury prevention including fire prevention, smoke alarms and seat belt usage - Screening for depression - Education about skin cancer - Recommendations about immunizations - Recommendation of an eye exam - Screening for substance abuse We discussed the differential for numbness and paresthesias. This may be due to pinched nerves in his neck and lower back or his arm, carpal tunnel syndrome or possibly related to a demyelinating disorder like MS. He does have a family history of this and had some nonspecific white matter changes on his prior MRI. Repeat MRI to see if there is significant change from prior. He would like to be [facility] to [facility]. Referral placed. He will have lab work done today to look for underlying causes, and he will also be scheduled for EMGs. He will continue to see his therapist regularly. I encouraged him to discuss alternative medications for anxiety and depression with his psychiatrist continuously. I will prescribe lorazepam to use on an as-needed basis. Given 14 tablets for 1 month. Reviewed this is a habit-forming, addictive medication. I reviewed the risks of addiction and withdrawal including seizures and . Patient is also advised not to drink alcohol with this medication, drive or operate heavy machinery. We reviewed the risks of respiratory suppression, sedation and drowsiness. He understands the risks. Re-evaluate in a few months. Orders: Orders Vitamin B12 and Folate 08/10/25 D64.9 - Anemia, unspecified, Z00.00 - Encounter for general adult medical examination without abnormal findings Lipid Panel 08/10/25 E78.5 - Hyperlipidemia, unspecified, Z00.00 - Encounter for general adult medical examination without abnormal findings Complete Blood Count Auto Diff 08/10/25 Z00.00 - Encounter for general adult medical examination without abnormal findings IRON PROFILE 08/10/25 D64.9 - Anemia, unspecified NE nerve conduction velocity Today R20.0 - Anesthesia of skin, R20.2 - Paresthesia of skin Lyme IgG/IgM w/reflex to WB Today R20.0 - Anesthesia of skin, R20.2 - Paresthesia of skin, R90.82 - White matter disease, unspecified Vitamin D 25-OH (D2 and D3) Today R20.0 - Anesthesia of skin, R20.2 - Paresthesia of skin MR head/brain wo con 08/10/25 R20.0 - Anesthesia of skin, R20.2 - Paresthesia of skin, Z87.820 - Personal history of traumatic brain injury Prostate Specific Antigen 08/10/25 Z00.00 - Encounter for general adult medical examination without abnormal findings, Z12.5 - Encounter for screening for malignant neoplasm of prostate NE electromyogram (EMG) Today R20.0 - Anesthesia of skin, R20.2 - Paresthesia of skin TSH reflex Free T4 Today R20.0 - Anesthesia of skin, R20.2 - Paresthesia of skin, R90.82 - White matter disease, unspecified Comprehensive Met. Panel Today R20.0 - Anesthesia of skin, R20.2 - Paresthesia of skin, R90.82 - White matter disease, unspecified Magnesium Today R20.2 - Paresthesia of skin, R90.82 - White matter disease, unspecified Referrals Neurology Referral R20.0 - Anesthesia of skin, R20.2 - Paresthesia of skin, R90.82 - White matter disease, unspecified Medications: New lorazepam 0.5 mg PO BEDTIME PRN 14 tabs 0RF anxiety
[2025-08-10 16:14] VITALS: BP 118/72; PULSE 81; RESP 15; TEMP 36.8; O2SAT 98; BMI 27.8
--- OUTSIDE RECORDS SUMMARY | 2025-08-10 20:18 | XMS_ITS | Clinical Summary ---
Author Organization [facility] Address [address] [place] [address] Care Team Providers Care Production Hand Name Role Phone Hyacinth Thompson Primary Care Provider Unavailabl e Allergies No known active allergies Medications betamethasone dipropionate 0.05 % ointmentIndicati ons:Pyoderma gangrenosum Mix with mupirocin ointment and apply onto the wound daily. 45 g 2 07/06/20 25 Active mupirocin (BACTROBAN) 2% ointmentIndicati ons:Pyoderma gangrenosum Mix with betamethasone ointment and apply a thin layer onto your wound daily. 22 g 3 07/06/20 25 Active Active Problems Problem Noted Date Diagnosed Date Polyarthralgia 08/03/2025 Assessment & Plan (08/04/2025 9:43 AM EST): History of pyoderma and also joint pains which predate the diagnosis of pyoderma. Family history of autoimmunity (mother with multiple sclerosis). There are features of the history which are in keeping with inflammatory arthritis although there is definite underlying degenerative disease as well, then overlay of anxiety/depression as well. -discussed we need some additional information here -x-rays -labs and urine -we will regroup after that and decide upon trial of a DMARD based upon the above Encounters Date Type Department Care Team Description 08/04/2025 9:38 AM EST - 08/04/2025 11:59 PM EST Hospital Encounter [facility] Xray [address] [place] [address] Polyarthralgia Discharge Disposition: Home or Self Care () 08/04/2025 9:00 AM EST Office Visit [facility] [address] [place] [address] Crane Service Technician: Tod Alford MD Polyarthralgia (Primary Dx) 07/06/2025 3:15 PM EDT Office Visit [facility] 4th Floor [address] [facility], [place] [phone] Crane Service Technician: Asha Tejada MD Pyoderma gangrenosum (Primary Dx) from Last 3 Months Family History Medical History Relation Name Comments Alcohol abuse Father Heart disease Father Osteoarthritis Maternal Grandmother Multiple sclerosis Mother Cancer Paternal Grandmother Relation Name Status Comments Father Maternal Grandmother Mother Paternal Grandmother Social History Tobacco Use Types Packs/Day Years Used Date Smoking Tobacco: Never Passive Smoke Exposure: Past Smokeless Tobacco: Never Tobacco Cessation:Counseling Given: No Alcohol Use Standard Drinks/Week Comments Never 0 (1 standard drink = 0.6 oz pur e alcohol) Sex and Gender Information Value Date Recorded Sex Assigned at Male 05/12/2024 4:26 PM EDT Legal Sex Male 10:17 AM EDT Gender Identity Male 05/12/2024 4:26 PM EDT Sexual Orientation Straight 05/12/2024 4: 26 PM EDT Last Filed Vital Signs Vital Sign Reading Time Taken Comments Blood Pressure 136/92 08/04/2025 8:38 AM EST Pulse 79 08/04/2025 8:38 AM EST Temperature 36.8 C (98.2 F) 08/04/2025 8:38 AM EST Respiratory Rate - - Oxygen Saturation - - Inhaled Oxygen Concentration - - Weight 99.3 kg (219 lb) 08/04/2025 8:38 AM EST Height 188 cm (6' 2 ) 08/04/2025 8:38 AM EST Body Mass Index 28.12 08/04/2025 8:38 AM EST Plan of Treatment Upcoming Encounters Date Type Department Care Team (Late st Contact Info) Description 11/30/2025 8:00 AM EDT Follow-Up [facility] [address] [place] [address] Crane Service Technician: Aniyah Hopkins, Tod Heart MD [address] [place] [address] Health Maintenance Due Date Last Done Comments Varicella Vaccines (1 of 2 - 13+ 2-dose series) 01/14/1997 Hepatitis B Vaccines (1 of 3 - 19+ 3-dose series) 01/14/2003 Alcohol/Substance Use Screening 09/17/2024 Depression Screening and Follow-Up 09/17/2024 Social Drivers of Health Annual Screening 09/17/2024 Influenza Vaccine (#1) 2025 08/26/2018 COVID-19 Vaccine (1 - 2024-2 6 season) 2025 Basic Metabolic Panel 08/04/2026 08/04/2025 , 09/01/2016 Diabetes Screening 08/04/2028 08/04/2025, 09/01/2016 DTaP,Tdap,and Td Vaccines (2 - Td or Tdap) 08/26/2028 08/26/2018 HIV Screening Completed 08/04/2025 Hepatitis C Screening Completed 08/04/2025 Pneumococcal Vaccine: Pediatric (0-5 Years) and At-Risk Patients (6-50 Years) Aged Out No longer eligible based on patient's age to complete this topic Procedures * Due to [place] state law, this organization might not be sharing negative HIV tests. Procedure Name Priority Date/Time Associated Diagnosis Comments XR HIP BILATERAL 2 VW W PELVIS Routine 08/04/2025 10:40 AM EST Polyarthralgia XR CERVICAL SPINE 4 OR 5 VIEWS INCLUDING FLEXION/EXTENSION Routine 08/04/2025 10:40 AM EST Polyarthralgia XR SACROILIAC JOINTS 3+ [...] Routine 08/04/2025 10 :40 AM EST Polyarthralgia CBC AUTO DIFFERENTIAL Routine 08/04/2025 10:20 AM EST Polyarthralgia COMPREHENSIVE METABOLIC PANEL Routine 08/04/2025 10:20 AM EST Polyarthralgia SEDIMENTATION RATE, AUTOMATED Routine 08/04/2025 10:20 AM EST Polyarthralgia C-REACTIVE PROTEIN Routine 08/04/2025 10 :20 AM EST Polyarthralgia CK Routine 08/04/2025 10:20 AM EST Polyarthralgia RHEUMATOID FACTOR Routine 08/04/2025 10: 20 AM EST Polyarthralgia CYCLIC CITRULLLNATED PEPTIDE (CCP) ANTIBODY, IGG Routine 08/04/2025 10:20 AM EST Polyarthralgia CHANELL SCREEN, IFA, W/REFLEX TO TITER & PATTERN Routine 08/04/2025 10:20 AM EST Polyarthralgia SSA & SSB (SJOGREN'S) ANTIBODIES Routine 08/04/2025 10:20 AM EST Polyarthralgia IMMUNOGLOBULINS PANEL (IGG, IGA, IGM) Routine 08/04/2025 10:20 AM EST Polyarthralgia HLA-B27 ANTIGEN Routine 08/04/2025 10:20 AM EST Polyarthralgia PROTEIN ELECTROPHORESIS, SERUM Routine 08/04/2025 10:20 AM EST Polyarthralgia IMMUNOFIXATION, URINE Routine 08/04/2025 10:20 AM EST Polyarthralgia KAPPA & LAMBDA, FREE W/RATIO Routine 08/04/2025 10:20 AM EST Polyarthralgia HEPATITIS B SURFACE ANTIBODY Routine 08/04/2025 10:20 AM EST Polyarthralgia HEPATITIS B SURFACE ANTIGEN W/CONFIRMATION Routine 08/04/2025 10:20 AM EST Polyarthralgia HEPATITIS B CORE ANTIBODY, TOTAL Routine 08/04/2025 10:20 AM EST Polyarthralgia HEPATITIS C ANTIBODY W/REFLEX TO HCV RNA, QUANTITATIVE PCR Routine 08/04/2025 10:20 AM EST Polyarthralgia QUANTIFERON-TB GOLD PLUS, 1 [id number] Routine 08/04/2025 10:20 AM EST Polyarthralgia SYPHILIS ANTIBODY W/REFLEX TO RPR (DIAGNOSIS) TITER & CONFIRMATION Routine 08/04/2025 10:20 AM EST Polyarthralgia HIV-1/2 ANTIGEN/ANTIBODIES 4TH GENERATION W/REFLEX Routine 08/04/2025 10:20 AM EST Polyarthralgia from Last 3 Months Results * Due to [place] state law, this organization might not be sharing negative HIV tests. * XR Spine Cervical 4 or 5 [...] to obtain the completed interpretation. Workstation ID: [id number] Narrative 08/04/2025 11:42 AM EST COMPARISON: There [...] are within normal limits. Resulting Agency Comment [id number] Procedure Note Li Cha MD - 08/04/2025 [...] possible to obtain thecompleted interpretation. Workstation ID: [id number] us Tod Hopkins MD IMG XR PROCEDURES Final Res ult * XR Hip Bilateral 2 vw W [...] to obtain the completed interpretation. Workstation ID: [id number] Narrative 08/04/2025 11:42 AM EST COMPARISON: There [...] are within normal limits. Resulting Agency Comment [id number] Procedure Note Li Cha MD - 08/04/2025 [...] possible to obtain thecompleted interpretation. Workstation ID: [id number] us Tod Hopkins MD IMG XR PROCEDURES [...] to obtain the completed interpretation. Workstation ID: [id number] Narrative 08/04/2025 11:42 AM EST COMPARISON: There [...] are within normal limits. Resulting Agency Comment [id number] Procedure Note Li Cha MD - 08/04/2025 [...] possible to obtain thecompleted interpretation. Workstation ID: [id number] Tod Hopkins MD IMG XR PROCEDURES Final [...] to obtain the completed interpretation. Workstation ID: [id number] Narrative 08/04/2025 11:42 AM EST COMPARISON: There [...] are within normal limits. Resulting Agency Comment [id number] Procedure Note Li Cha MD - 08/04/2025 [...] possible to obtain thecompleted interpretation. Workstation ID: [id number] us Tod Hopkins MD IMG XR PROCEDURES [...] to obtain the completed interpretation. Workstation ID: [id number] Narrative 08/04/2025 11:42 AM EST COMPARISON: There [...] are within normal limits. Resulting Agency Comment [id number] Procedure Note Li Cha MD - 08/04/2025 [...] possible to obtain thecompleted interpretation. Workstation ID: [id number] us Tod Hopkins MD IMG XR PROCEDURES [...] to obtain the completed interpretation. Workstation ID: [id number] Narrative 08/04/2025 11:42 AM EST COMPARISON: There [...] are within normal limits. Resulting Agency Comment [id number] Procedure Note Li Cha MD - 08/04/2025 [...] possible to obtain thecompleted interpretation. Workstation ID: [id number] us Tod Hopkins MD IMG XR PROCEDURES [...] to obtain the completed interpretation. Workstation ID: [id number] Narrative 08/04/2025 11:42 AM EST COMPARISON: There [...] are within normal limits. Resulting Agency Comment [id number] Procedure Note Li Cha MD - 08/04/2025 [...] possible to obtain thecompleted interpretation. Workstation ID: [id number] us Tod Hopkins MD IMG XR PROCEDURES [...] to obtain the completed interpretation. Workstation ID: [id number] Narrative 08/04/2025 11:42 AM EST COMPARISON: There [...] are within normal limits. Resulting Agency Comment [id number] Procedure Note Li Cha MD - 08/04/2025 [...] possible to obtain thecompleted interpretation. Workstation ID: [id number] us Tod Hopkins MD IMG XR PROCEDURES [...] to obtain the completed interpretation. Workstation ID: [id number] Narrative 08/04/2025 11:42 AM EST COMPARISON: There [...] are within normal limits. Resulting Agency Comment [id number] Procedure Note Li Cha MD - 08/04/2025 [...] possible to obtain thecompleted interpretation. Workstation ID: [id number] us Tod Hopkins MD IMG XR PROCEDURES Final Res ult * Syphilis Antibody w/Reflex to RPR (Diagnosis) Titer & Confirmation (08/04/2025 10:20 AM EST) T. Pallidum AB NEGATIVE NEGATIVE 08/04/2025 8:26 PM EST [facility] Comment: No antibodies to T. pallidum (the agent causing syphilis) were detected in the specimen. This result, however, does not exclude very recent T. pallidum infection; testing of a second specimen, collected 2-4 weeks after this specimen, is recommended if the index of suspicion for recent infection is high. Blood Structure of peripheral vein / Unknown Venipuncture / Unknown 08/04/2025 10:20 AM EST 08/04/2025 10:30 AM EST Narrative [facility] [place] - 08/04/2025 8:26 PM EST [facility] Received Date:[id number] Tod Hopkins MD LAB BLOOD ORDERABLES Final Result Performing Organization Address City/[facility]/ZIP Co de Phone Number [facility] [address], [place] [address], [facility] [address], [place] [address], * Immunofixation, Urine (08/04/2025 10:20 AM EST) Pathologist [facility] Immunofixation, Urine, Interpretation See Comments 08/10/2025 2:47 PM EST [facility] Comment: Normal pattern. No monoclonal proteins detected. Urine Voided urine specimen / Unknown Non-Blood Collection / Unknown 08/04/2025 10:20 AM EST 08/04/2025 10:32 AM EST Narrative [facility] [place] - 08/10/2025 2:47 PM EST [facility] Received Date:[id number] Tod Hopkins MD LAB URINE ORDERABLES Final Result Performing Organization Address City/[facility]/ZIP Co de Phone Number [facility] [address] [facility] [address] [facility], [place] [address], [place] [phone] [facility] [address], [place] [address], * SSA & SSB (SJOGREN'S) Antibodies (08/04/2025 10:20 AM EST) [facility] Sjogren's Ab (SS-A) <1.0 NEG <1.0 NEG AI 08/04/2025 9:42 PM EST [facility] Sjogren's Ab (SS-B) <1.0 NEG <1.0 NEG AI 08/04/2025 9:42 PM EST [facility] Blood Structure of peripheral vein / Unknown Venipuncture / Unknown 08/04/2025 10:20 AM EST 08/04/2025 10:30 AM EST Narrative [facility] - 08/04/2025 9:42 PM EST [facility] Received Date: us Tod Hopkins MD LAB BLOOD ORDERABLES Final Result [facility] [place] [address] [facility] 3rd Floor, [place] [address], [facility] [address] [facility] 3rd [address], [place] [address], * (ABNORMAL) [place] & Lambda, Free w/Ratio (08/04/2025 10:20 AM EST) [place] Light Chain, Free, Serum 12.6 3.3 - 19.4 mg/L 08/05/2025 1:46 PM EST [facility] Lambda Light Chain, Free, Serum 7.3 5.7 - 26.3 mg/L 08/05/2025 1:46 PM EST [facility] [place]/Lambda Light Chains Free With Ratio 1.73(H) 0.26 - 1.65 08/05/2025 1:46 PM EST [facility] Comment: Free kappa/lambda ratio in serum of normal individuals is 0.26-1.65. Excess production of free kappa or lambda chains can alter this ratio. Monoclonal free light chains are found in serum of patients with multiple myeloma, Waldenstrom's macroglobulinemia, mu-heavy chain disease, primary amyloidosis, light chain deposition disease, monoclonal gammopathy of undetermined significance, and lymphoproliferative disorders. Measurement of free light chain concentration in serum is useful for diagnosis, prognosis, monitoring disease activity and following response to therapy of these disorders. Blood Structure of peripheral vein / Unknown Venipuncture / Unknown 08/04/2025 10:20 AM EST 08/04/2025 10:30 AM EST Narrative [facility] - 08/05/2025 1:46 PM EST [facility] Received Date:[id number] Tod Hopkins MD LAB BLOOD ORDERABLES Final Result [facility] [address] [facility] 3rd [address], [place] [address], [facility] [address] [facility] 3rd Floor, [place] [address], * QuantiFERON-TB Gold Plus, 1 Tube (08/04/2025 10:20 AM EST) [facility] QuantiFERON-TB Gold Plus NEGATIVE NEGATIVE 08/06/2025 4:44 PM EST [facility] [facility] Comment: Negative test result. M. tuberculosis complex infection unlikely. NIL 0.07 IU/mL 08/06/2025 4:44 PM EST [facility] Mitogen-NIL 8.27 IU/mL 08/06/2025 4:44 PM EST [facility] TB1-NIL 0.01 IU/mL 08/06/2025 4:44 PM EST [facility] TB2-NIL 0.01 IU/mL 08/06/2025 4:44 PM EST [facility] Comment: The Nil tube value reflects the background interferon gamma immune response of the patient's blood sample. This value has been subtracted from the patient's displayed TB and Mitogen results. Lower than expected results with the Mitogen tube prevent false-negative Quantiferon readings by detecting a patient with a potential immune suppressive condition and/or suboptimal pre-analytical specimen handling. The TB1 Antigen tube is coated with the M. tuberculosis-specific antigens designed to elicit responses from TB antigen primed CD4+ helper T-lymphocytes. The TB2 Antigen tube is coated with the M. tuberculosis-specific antigens designed to elicit responses from TB antigen primed CD4+ helper and CD8+ cytotoxic T-lymphocytes. For additional information, please refer to https://education.[employer]/faq/YKP908 (This link is being provided for informational/ educational purposes only.) Blood Structure of peripheral vein / Unknown Venipuncture / Unknown 08/04/2025 10:20 AM EST 08/04/2025 10:29 AM EST Narrative [facility] - 08/06/2025 4:44 PM EST [facility] Received Date: Tod Hopkins MD LAB BLOOD ORDERABLES Final Result [address], [place] [address], [place] [phone] [facility] [address] [facility] 3rd [address], [place] [address], * (ABNORMAL) CBC Auto Differential (08/04/2025 10:20 AM EST) WBC 9.8 3.8 - 10.8 10*3/uL 08/04/2025 10:38 AM EST [facility] RBC 4.34 4.20 - 5.80 10*6/uL 08/04/2025 10:38 AM EST [facility] Hemoglobin 12.5(L) 13.2 - 17.1 g/dL 08/04/2025 10:38 AM EST [facility] Hematocrit 38.0(L) 38.5 - 50.0 % 08/04/2025 10:38 AM EST [facility] MCV 87.6 80.0 - 100.0 fL 08/04/2025 10:38 AM EST [facility] MCH 28.8 27.0 - 33.0 pg 08/04/2025 10:38 AM EST [facility] MCHC 32.9 32.0 - 36.0 g/dL 08/04/2025 10:38 AM EST [facility] RDW 13.0 11.0 - 15.0 % 08/04/2025 10:38 AM [facility] Platelets 339 140 - 400 10*3/uL 08/04/2025 10:38 AM [facility] MPV 8.6 7.5 - 12.5 fL 08/04/2025 10:38 AM [facility] Neutrophil % 74.3 % 08/04/2025 10:38 AM [facility] Immature Grans % 0.3 0.0 - 0.9 % 08/04/2025 10:38 AM [facility] Lymphocyte % 17.0 % 08/04/2025 10:38 AM [facility] Monocyte % 5.2 % 08/04/2025 10:38 AM [facility] Eosinophil % 2.3 % 08/04/2025 10:38 AM [facility] Basophil % 0.9 % 08/04/2025 10:38 AM [facility] Neutrophil # 7.31 1.50 - 7.80 10*3/uL 08/04/2025 10:38 AM [facility] Immature Grans # 0.03 <=0.03 10*3/uL 08/04/2025 10:38 AM [facility] Lymphocyte # 1.70 0.85 - 3.90 10*3/uL 08/04/2025 10:38 AM [facility] Monocyte # 0.50 0.20 - 0.95 10*3/uL 08/04/2025 10:38 AM [facility] Eosinophil # 0.20 0.02 - 0.50 10*3/uL 08/04/2025 10:38 AM [facility] Basophil # 0.10 0.00 - 0.20 10*3/uL 08/04/2025 10:38 AM EST [facility] nRBC % 0.0 /100 WBCs 08/04/2025 10:38 AM EST [facility] nRBC # <0.01 <0.01 10*3/uL 08/04/2025 10:38 AM EST [facility] Blood Structure of peripheral vein / Unknown Venipuncture / Unknown 08/04/2025 10:20 AM EST 08/04/2025 10:30 AM EST Tod Hopkins MD LAB BLOOD ORDERABLES Final Result [facility] [address] [place] [address], * HLA-B27 antigen (08/04/2025 10:20 AM EST) HLA-B27 Antigen Negative Negative 08/06/2025 11:05 AM EST [facility]) Blood Structure of peripheral vein / Unknown Venipuncture / Unknown 08/04/2025 10:20 AM EST 08/04/2025 10:30 AM EST Narrative [facility] ([facility]) - 08/06/2025 11:05 AM EST [facility] Received Date: Tod Hopkins MD LAB BLOOD ORDERABLES Final Result Performing Organization Address City/[facility]/ZIP Co de Phone Number [facility] ([facility]) [address] [place] [address], [place] * Cyclic Citrullinated Peptide (CCP) Antibody, IgG (08/04/2025 10:20 AM EST) Cyclic Citrullinated Peptide (CCP) Ab (IgG) <16 UNITS 08/07/2025 3:57 PM EST [facility] Comment: Reference Range Negative: <20 Weak Positive: 20-39 Moderate Positive: 40-59 Strong Positive: >59 Blood Structure of peripheral vein / Unknown Venipuncture / Unknown 08/04/2025 10:20 AM EST 08/04/2025 10:30 AM EST Narrative [facility] - 08/07/2025 3:57 PM EST [facility] Received Date:[id number] Tod Hopkins MD LAB BLOOD ORDERABLES Final Result Performing Organization Address City/[facility]/ZIP Co de Phone Number [facility] [address], [place] [address], [place] [phone] [facility] [address], [place] [address], [place] [phone] * Hepatitis C Antibody w/Reflex to HCV RNA, Quantitative PCR (08/04/2025 10:20 AM EST) Hepatitis C Antibody NON-REACT SVITLANA NON-REACT SVITLANA 08/04/2025 10:14 PM EST [facility] Comment: HCV antibody was non-reactive. There is no laboratory evidence of HCV infection. In most cases, no further action is required. However, if recent HCV exposure is suspected, a test for HCV RNA (test code 58795) is suggested. For additional information please refer to http://education.[employer]/faq/FVI47p0 (This link is being provided for informational/ educational purposes only.) Blood Structure of peripheral vein / Unknown Venipuncture / Unknown 08/04/2025 10:20 AM EST 08/04/2025 10:30 AM EST [facility] - 08/04/2025 10:14 PM EST [facility] Received Date:[id number] Tod Hopkins MD LAB BLOOD ORDERABLES Final Result [facility] [address], [place] [address], [place] [phone] [facility] [address], [place] [address], [place] [phone] * CHANELL Screen, IFA, w/Reflex to Titer & Pattern (08/04/2025 10:20 AM EST) Pathologist [facility] CHANELL Screen, IFA NEGATIVE NEGATIVE 10:38 AM EST [facility] Comment: CHANELL IFA is a first line screen for detecting the presence of up to approximately 150 autoantibodies in various autoimmune diseases. A negative CHANELL IFA result suggests an CHANELL-associated autoimmune disease is not present at this time, but is not definitive. If there is high clinical suspicion for Sjogren's syndrome, testing for anti-SS-A/Ro antibody should be considered. Anti-[place]-1 antibody should be considered for clinically suspected inflammatory myopathies. AC-0: Negative International Consensus on CHANELL Patterns (https://doi.org/10.1515/uwcx-7161-6380) For additional information, please refer to http://[employer] Craft.[employer]/faq/XSD458 (This link is being provided for informational/ educational purposes only.) Blood Structure of peripheral vein / Unknown Venipuncture / Unknown 08/04/2025 10:20 AM EST 08/04/2025 10:30 AM EST [facility] 08/05/2025 10:38 AM EST [facility] Received Date: Tod Hopkins MD LAB BLOOD ORDERABLES Final Result [facility] [address], [place] [address], [employer] [facility] [address], [place] [address], * Hepatitis B Core Antibody, Total (08/04/2025 10:20 AM EST) Pathologist [facility] Hepatitis B Core Ab Total NON-REACT SVITLANA NON-REACT SVITLANA 08/05/2025 6:33 AM EST [facility] Comment: For additional information, please refer to http://Application Craft.[employer]/faq/IQW629 (This link is being provided for informational/ educational purposes only.) Blood Structure of peripheral vein / Unknown Venipuncture / Unknown 08/04/2025 10:20 AM EST 08/04/2025 10:30 AM EST Narrative [facility] - 08/05/2025 6:33 AM EST [facility] Received Date:[id number] Tod Hopkins MD LAB BLOOD ORDERABLES Final Result Performing Organization Address City/[facility]/ZIP Co de Phone Number [facility] 200 [facility] [address] [facility], [place] [address], [place] [phone] [facility] [facility] 200 [facility] [address] [facility], [place] [address], [place] [phone] * HIV-1/2 Antigen/Antibodies 4th Generation w/Reflex (08/04/2025 10:20 AM EST) HIV Final Interp HIV NEGATIVE 08/04/2025 10:27 PM EST [facility] Comment: HIV-1 antigen and HIV-1/HIV-2 antibodies were not detected. There is no laboratory evidence of HIV infection. Blood Structure of peripheral vein / Unknown Venipuncture / Unknown 08/04/2025 10:20 AM EST 08/04/2025 10:30 AM EST Narrative [facility] - 08/04/2025 10:27 PM EST [facility] Received Date:[id number] Tod Hopkins MD LAB BLOOD ORDERABLES Final Result Performing Organization Address City/[facility]/ZIP Co de Phone Number [facility] [address] [facility] [address] [facility], [place] [address], [place] [phone] [facility] [facility] 200 [facility] 3rd Floor, [place] [address], [place] [phone] * (ABNORMAL) Hepatitis B Surface Antibody (08/04/2025 10:20 AM EST) Hepatitis B Surface Ab Immunity, Qn <5(L) > OR = 10 mIU/mL 08/05/2025 6:37 AM EST [employer] Comment: PATIENT DOES NOT HAVE IMMUNITY TO HEPATITIS B VIRUS. For additional information, please refer to [email or web address] [email or web address] A-Team Clubhouse/faq/PUO218 (This link is being provided for informational/ educational purposes only). Blood Structure of peripheral vein / Unknown Venipuncture / Unknown 08/04/2025 10:20 AM EST 08/04/2025 10:30 AM EST Narrative [facility] - 08/05/2025 6:37 AM EST [facility] Received Date: Tod Hopkins MD LAB BLOOD ORDERABLES Final Result [facility] [address] [facility] 3rd Floor, [place] [address], [place] [phone] [facility] [address], [place] [address], [place] [phone] * Hepatitis B Surface Antigen W/Confirmation (08/04/2025 10:20 AM EST) Hepatitis B Surface Antigen NON-REACT SVITLANA NON-REACT SVITLANA 08/05/2025 6:37 AM EST [facility] Comment: For additional information, please refer to http://Application [email or web address] [employer] Clubhouse/faq/VCN446 (This link is being provided for informational/ educational purposes only.) Blood Structure of peripheral vein / Unknown Venipuncture / Unknown 08/04/2025 10:20 AM EST 08/04/2025 10:30 AM EST Narrative [facility] - 08/05/2025 6:37 AM EST [facility] Received Date:[id number] us Tod Hopkins MD LAB BLOOD ORDERABLES Final Result [facility] [address] [facility] 3rd Floor, [place] [address], [place] [phone] [facility] 200 [facility] 3rd Floor, [place] [address], [place] [phone] * Sedimentation Rate (08/04/2025 10:20 AM EST) Pathologist [facility] Sed Rate 14 <15 mm/Hr mm/Hr 08/04/2025 10:40 AM EST [facility] Blood Structure of peripheral vein / Unknown Venipuncture / Unknown 08/04/2025 10:20 AM EST 08/04/2025 10:30 AM EST Tod Hopkins MD LAB BLOOD ORDERABLES Final Result [facility] [address] [place] [address], * Rheumatoid Factor (08/04/2025 10:20 AM EST) Pathologist [facility] Rheumatoid Factor <10 <14 IU/mL 08/04/2025 8:56 PM EST [facility] Blood Structure of peripheral vein / Unknown Venipuncture / Unknown 08/04/2025 10:20 AM EST 08/04/2025 10:30 AM EST Narrative [facility] - 08/04/2025 8:56 PM EST [facility] Received Date:[id number] Tod Hopkins MD LAB BLOOD ORDERABLES Final Result Performing Organization Address City/[facility]/ZIP Co de Phone Number [facility] [address] [facility] 3rd Floor, [place] [address], [place] [phone] [facility] 200 [facility] 3rd Floor, [place] [address], [place] [phone] * Immunoglobulins Panel (IgG, IgA, IgM) (08/04/2025 10:20 AM EST) Pathologist [facility] Immunoglobulin A 132 47 - 310 mg/dL 08/04/2025 6:28 PM EST [facility] IgG, Serum 1049 600 - 1640 mg/dL 08/04/2025 6:28 PM EST [facility] Immunoglobulin M 139 50 - 300 mg/dL 08/04/2025 6:28 PM EST [facility] Blood Structure of peripheral vein / Unknown Venipuncture / Unknown 08/04/2025 10:20 AM EST 08/04/2025 10:30 AM EST [facility]ative [facility] 08/04/2025 6:28 PM EST [facility] Received Date:[id number] Tod Hopkins MD LAB BLOOD ORDERABLES Final Result [facility] [address] [facility] 3rd Floor, [place] [address], [place] [phone] [facility] [employer] [facility] 200 [facility] [address] [facility], [place] [address], [place] [phone] * (ABNORMAL) C-Reactive Protein (08/04/2025 10:20 AM EST) C Reactive Protein 11.4(H) <=9.9 mg/L 08/04/2025 11:23 AM EST [facility] Blood Structure of peripheral vein / Unknown Venipuncture / Unknown 08/04/2025 10:20 AM EST 08/04/2025 10:30 AM EST Tod Hopkins MD LAB BLOOD ORDERABLES Final Result [facility] [address] [place] [address], * Protein Electrophoresis, Serum (08/04/2025 10:20 AM EST) Protein, Total 7.1 6.1 - 8.1 g/dL 08/10/2025 1:41 PM EST [facility] Albumin 4.3 3.8 - 4.8 g/dL 08/10/2025 1:41 PM EST [facility] Alpha 1 Globulin 0.3 0.2 - 0.3 g/dL 08/10/2025 1:41 PM EST [facility] Alpha 2 Globulin 0.8 0.5 - 0.9 g/dL 08/10/2025 1:41 PM EST [facility] Beta 1 Globulin 0.5 0.4 - 0.6 g/dL 08/10/2025 1:41 PM EST [facility] Beta 2 Globulin 0.3 0.2 - 0.5 g/dL 08/10/2025 1:41 PM EST [facility] Gamma Globulin 0.9 0.8 - 1.7 g/dL 08/10/2025 1:41 PM EST [facility] Interpretation See Comments 08/10/2025 1:41 PM EST [facility] [employer] [facility] Comment: Normal Serum Protein Electrophoresis Pattern. No abnormal protein bands (M-protein) detected. Blood Structure of peripheral vein / Unknown Venipuncture / Unknown 08/04/2025 10:20 AM EST 08/04/2025 10:30 AM EST Narrative [facility] - 08/10/2025 1:41 PM EST [facility] Received Date: Tod Hopkins MD LAB BLOOD ORDERABLES Final Result [facility] [address] [facility] 3rd [address], [place] [address], [place] [phone] [facility] [address], [place] [address], [place] [phone] * Creatine Kinase (08/04/2025 10:20 AM EST) CK 87 49 - 348 U/L 08/04/2025 11:23 AM EST [facility] Blood Structure of peripheral vein / Unknown Venipuncture / Unknown 08/04/2025 10:20 AM EST 08/04/2025 10:30 AM EST Tod Hopkins MD LAB BLOOD ORDERABLES Final Result [facility] [address] [place] [address], * Comprehensive Metabolic Panel (08/04/2025 10:20 AM EST) NA 140 135 - 145 mmol/L 08/04/2025 11:23 AM EST [facility] K 4.0 3.5 - 5.3 mmol/L 08/04/2025 11:23 AM EST [facility] Cl 106 97 - 110 mmol/L 08/04/2025 11:23 AM EST [facility] CO2 25 22 - 32 mmol/L 08/04/2025 11:23 AM [facility] Anion Gap 9 5 - 15 08/04/2025 11:23 AM [facility] Glucose 96 65 - 99 mg/dL 08/04/2025 11:23 AM [facility] Creatinine 0.87 0.60 - 1.30 mg/dL 08/04/2025 11:23 AM [facility] Calcium 9.2 8.6 - 10.5 mg/dL 08/04/2025 11:23 AM [facility] Total Protein 7.6 6.0 - 8.0 g/dL 08/04/2025 11:23 AM [facility] Albumin 4.6 3.5 - 5.2 g/dL 08/04/2025 11:23 AM [facility] Bilirubin, Total 0.3 0.2 - 1.2 mg/dL 08/04/2025 11:23 AM [facility] Alkaline Phosphatase 79 35 - 129 U/L 08/04/2025 11:23 AM EST [facility] AST 19 10 - 40 U/L 08/04/2025 11:23 AM [facility] ALT 13 10 - 40 U/L 08/04/2025 11:23 AM [facility] BUN 13 7 - 23 mg/dL 08/04/2025 11:23 AM EST [facility] eGFR >90 >=60 mL/min/1. 73m2 08/04/2025 11:23 AM EST [facility] Comment:The estimated glomer ular filtration rate (eGFR) is calculated using a new formula developed by the NKF-ASN task force to eliminate race-based correction factors. The new formula uses serum/plasma creatinine, age, and gender to determine eGFR. A value below 60mls/min might indicate kidney disease and will be flagged. For additional information, see Beba et al, Am J Kidney Dis. 2021;79(2):268- 288, A Unifying Approach for GFR estimation: Recommendations of the NKF-ASN Task Force on Reassessing the Inclusion of Race in Diagnosing Kidney Disease . Globulin, Total 3.0 2.1 - 4.2 g/dL 08/04/2025 11:23 AM EST [facility] A/G Ratio 1.5 1.5 - 3.0 08/04/2025 11:23 AM EST [facility] Blood Structure of peripheral vein / Unknown Venipuncture / Unknown 08/04/2025 10:20 AM EST 08/04/2025 10:30 AM EST us Tod Hopkins MD LAB BLOOD ORDERABLES Final Result [facility] [address] [place] [address], from Last 3 Months Insurance [facility] MEDICAID Care Teams Production Hand Relationship Specialty Start Date End Date Hyacinth Thompson PCP - General Internal Medicine 08/04/25
--- OUTSIDE RECORDS SUMMARY | 2025-08-10 20:18 | XMS_ITS | Clinical Summary ---
Author Organization [address] [place] [address] [place] [phone] Phone Care Team Providers Care Customs Compliance Manager Name Role Phone Hyacinth Thompson Primary Care Provider [phone] Allergies No known active allergies Medications No known medications Active Problems Problem Noted Date Diagnosed Date Paroxysmal atrial fibrillati on with rapid ventricular response (CMS/HCC V24, CMS/HCC V28) 07/11/2024 Cardiomyopathy (CMS/HCC V24, CMS/HCC V28) 2023 Medical History Medical History Date Comments Fusion of spine, lumbosacral region Family History Medical History Relation Name Comments Heart attack Father cardiac stents Father Heart attack Paternal Grandfather Relation Name Status Comments Father Paternal Grandfather Social History Tobacco Use Types Packs/Day Years Used Date Smoking Tobacco: Never Smokeless Tobacco: Never Tobacco Cessation:Counseling Given: Not Answered Alcohol Use Standard Drinks/Week Comments Not Currently 0 (1 standard drink = 0.6 oz pur e alcohol) Sex and Gender Information Value Date Recorded Sex Assigned at Male 08/29/2024 8:01 AM EST Legal Sex Male 11:28 AM EST Gender Identity Male 08/29/2024 8:01 AM EST Sexual Orientation Straight 08/29/2024 8: 01 AM EST Obstetrics History Last Filed Vital Signs Vital Sign Reading Time Taken Comments Blood Pressure 118/80 09/23/2024 8:06 AM EST Pulse 65 09/23/2024 8:06 AM EST Temperature 36.4 C (97.5 F) 08/29/2024 8:24 AM EST Respiratory Rate 25 08/29/2024 1:15 PM EST Oxygen Saturation 97% 09/23/2024 8:06 AM EST Inhaled Oxygen Concentration - - Weight 108 kg (238 lb) 10/13/2024 8:26 AM EST Height 188 cm (6' 2 ) 10/13/2024 8:26 AM EST Body Mass Index 30.56 10/13/2024 8:26 AM EST Plan of Treatment Health Maintenance Due Date Last Done Comments Hepatitis B Vaccines (1 of 3 - 19+ 3-dose series) 01/14/2003 HPV Vaccines (1 - 3-dose SCD M series) 01/14/2011 Cholesterol Screening (Lipid Panel) 08/15/2022 HIV Screening 08/15/2022 Hepatitis C Screening 08/15/2022 Social Influencers of Health Screening 08/15/2022 Depression Screening 09/17/2024 COVID-19 Vaccine (1 - 2024-2 6 season) 2025 Influenza Vaccine (#1) 2025 08/26/2018 DTaP,Tdap,and Td Vaccines (2 - Td or Tdap) 08/26/2028 08/26/2018 RSV Immunization Adult Patie nts (1 - 1-dose 75+ series) 01/14/2059 HIB Vaccines Aged Out No longer eligi ble based on patient's age to complete this topic Hepatitis A Vaccines Aged Out No long er eligible based on patient's age to complete this topic IPV Vaccines Aged Out No longer eligi ble based on patient's age to complete this topic MMR Vaccines Aged Out No longer eligi ble based on patient's age to complete this topic Meningococcal ACWY Vaccine Aged Out N o longer eligible based on patient's age to complete this topic Meningococcal B Vaccine Aged Out No l onger eligible based on patient's age to complete this topic Pneumococcal Vaccine: Pediat rics (0 to 5 Years) and At-Risk Patients (6 to 49 Years) Aged Out No longer eligi ble based on patient's age to complete this topic RSV Immunization Patients Un claudio 20 months Aged Out No longer eligible b ased on patient's age to complete this topic Varicella Vaccines Aged Out No longer eligible based on patient's age to complete this topic Medical Devices Implanted Type Area Market Analyst Device Identifier Shelf Expiration Date Model / Serial / Lot Device Clsur Vascade Mvp 6-12f [facility] Art - [id number] - [id number] Implanted:Qty: 4 on 08/29/2024 by Jesse Samuels MD at [facility] Vascular Closure Devices N/A: Groin [employer]- [employer] ITEMS 04/29/2026 [id number] / [id number] / Insurance [facility] Advance Directives Documents on File Type Date Recorded Patient Senior Network Security Architect Expl anation Health Care Decision (hx) 05/07/2024 AD BARRIOS DIRECTIVE * Full Code - Default (Latest Code Status on File) Date Activated Date Inactivated Comments 08/29/2024 8:49 AM 08/29/2024 4:42 PM This is or claudio is used when code status has not been discussed with the patient, or code status is otherwise unknown/unconfirmed To update the patient's code status, place a code status order. Do not modify or discontinue any currently active code status orders. Care Teams Customs Compliance Manager Relationship Specialty Start Date End Date Hyacinth Thompson PA [address] [place] [address] PCP - General Physician Printing Press Operator Apprentice 07/11/24
--- OUTSIDE RECORDS SUMMARY | 2025-08-10 20:18 | XMS_ITS | Clinical Summary ---
Author Organization [facility] Address [address] [place] [address] Phone Care Team Providers Care Clinic Nurse Name Role Phone Ky Richardson INDUSTRIAL CAFETERIA MANAGER Primary Care Provider [phone] Allergies No known active allergies Medications No known medications Social History Tobacco Use Types Packs/Day Years Used Date Smoking Tobacco: Never Smokeless Tobacco: Never Education Answer Date Recorded Are you interested in more education? Not on shady e 01/12/2023 Are you concerned about learning? Not on file 01/12/2023 No 01/12/2023 No 01/12/2023 Digital Access Answer Date Recorded No 02/10/2023 No 02/10/2023 No 02/10/2023 Reliable internet access at home? Not on file 02/10/2023 Device with a working camera? Not on file Sex and Gender Information Value Date Recorded Sex Assigned at Male 05/20/2024 4:51 PM EDT Legal Sex Male 9:31 AM EDT Gender Identity Male 05/20/2024 4:51 PM EDT Sexual Orientation Straight 05/20/2024 4: 51 PM EDT Last Filed Vital Signs Vital Sign Reading Time Taken Comments Blood Pressure - - Pulse - - Temperature - - Respiratory Rate - - Oxygen Saturation - - Inhaled Oxygen Concentration - - Weight 106.1 kg (233 lb 12.8 oz) 2018 10:15 AM EST Height 184.2 cm (6' 0.5 ) 08/01/2019 10 :15 AM EST Body Mass Index 31.27 08/01/2019 10:15 AM EST Plan of Treatment Health Maintenance Due Date Last Done Comments Adult Td,Tdap Booster 1984 LIPID PANEL 1984 DEPRESSION SCREENING 1996 HEPATITIS C SCREENING 01/14/2002 HIV ONE-TIME SCREENING (18-6 5 YEARS) 01/14/2002 INFLUENZA VACCINE (#1) 2025 COVID-19 VACCINE (2024-2 6 season) 2025 02/15/2021, 01/14/2021 SMOKING STATUS SCREENING (On ce After 26 Yrs) Completed 08/01/2019 HEPATITIS A VACCINES Aged Out No long er eligible based on patient's age to complete this topic HIB VACCINES Aged Out No longer eligi ble based on patient's age to complete this topic MENINGOCOCCAL VACCINES (ACWY) Aged Out No longer eligible based on patient's age to complete this topic MENINGOCOCCAL VACCINES (B) Aged Out N o longer eligible based on patient's age to complete this topic PNEUMOCOCCAL VACCINES (0-49 years) Aged Out No longer eligible b ased on patient's age to complete this topic Medical Devices Not on file Insurance [employer] PPO [facility] ACO [employer]IG[employer] PPO [facility] ACO CIGNA PPO CIGNA PPO CIGNA PPO [facility] ACO CIGNA PPO CIGNA PPO [facility] CIGNA PPO [facility] ACO CIGNA PPO [facility] ACO Care Teams Clinic Nurse Relationship Specialty Start Date End Date Ky Richardson NP [address] [place] [address] PCP - General Nurse Practitioner 05/20/24 Additional Source Comments The information contained in this document represents components of the legal health record. It is not the complete legal health record.[facility]
--- OUTSIDE RECORDS SUMMARY | 2025-08-10 20:19 | XMS_ITS | Clinical Summary ---
Author Organization [facility] Address [address] [place] [address] Care Team Providers Care Pegger Dobby Looms Name Role Phone Unavailable Primary Care Provider Unavailabl e Allergies No known active allergies Medications Medication Sig Dispensed Refills Start Date End Date Status ondansetron (ZOFRAN-ODT) 4 MG disintegrating tablet Take 2 tablets (8 mg total) by mouth every 8 (eight) hours as needed for nausea. 12 tablet 0 09/01/2016 Active Social History Tobacco Use Types Packs/Day Years Used Date Smoking Tobacco: Never Alcohol Use Standard Drinks/Week Comments Yes 0 (1 standard drink = 0.6 oz pur e alcohol) occasionally Sex and Gender Information Value Date Recorded Sex Assigned at Not on file Gender Identity Not on file Sexual Orientation Not on file Job Start Date Occupation Industry Not on file Not on file Not on file Last Filed Vital Signs Vital Sign Reading Time Taken Comments Blood Pressure 118/82 09/01/2016 11:02 AM EST Pulse 80 09/01/2016 11:02 AM EST Temperature 36.6 C (97.8 F) 09/01/2016 11:02 AM EST Respiratory Rate 18 09/01/2016 11:02 AM EST Oxygen Saturation 99% 09/01/2016 11:02 AM EST Inhaled Oxygen Concentration - - Weight 104.3 kg (230 lb) 09/01/2016 7:30 AM EST Height 188 cm (6' 2 ) 09/01/2016 7:30 AM EST Body Mass Index 29.53 09/01/2016 7:30 AM EST Plan of Treatment Health Maintenance Due Date Last Done Comments Hepatitis B Vaccines (1 of 3 - 3-dose series) 1984 Hepatitis C Screening 1984 COVID-19 Vaccine (#1) 1984 Depression Screening 1996 Preventative Health Evaluation 01/14/2002 DTap / Tdap / Td (1 - Tdap) 01/14/2003 Influenza Vaccine (#1) 2025 Pneumococcal Vaccine Aged Out No long er eligible based on patient's age to complete this topic RSV Ped < 20 months Aged Out No longe r eligible based on patient's age to complete this topic
== END 2025-08-11 15:25 | disposition home or self-care (01) ==
LOC: HO.HMCFM 15:59
PROVIDERS: PCP Physician Assistant Medical; Visit Provider Physician Assistant Medical
DX: Z00.00 Encounter for general adult medical examination without abnormal findings (principal); F32.A Depression, unspecified; F43.10 Post-traumatic stress disorder, unspecified; F41.9 Anxiety disorder, unspecified; R20.2 Paresthesia of skin; R20.0 Anesthesia of skin; R90.82 White matter disease, unspecified

== ENCOUNTER → 2025-08-10 15:58 | Outpatient (BNVA) | payer OTHER, SELFPAY | PROVIDERS: PCP Physician Assistant Medical; Visit Provider Physician Assistant Medical | DX: Z00.00 Encounter for general adult medical examination without abnormal findings (principal); R20.2 Paresthesia of skin; R20.0 Anesthesia of skin; F41.9 Anxiety disorder, unspecified; F32.A Depression, unspecified; F43.10 Post-traumatic stress disorder, unspecified; R90.82 White matter disease, unspecified; Z13.31 Encounter for screening for depression; Z13.39 Encounter for screening examination for other mental health and behavioral disorders; Z87.820 Personal history of traumatic brain injury | CPT/HCPCS: 96127; 99396 ==